=== PATIENT | female | born 1955 | race Caucasian/White ===

== ENCOUNTER 2016-08-19 11:36 | Emergency (ER) | payer MEDICAID ==
[2016-08-19 11:59] VITALS: BP 131/75
[2016-08-19] MEDS ORDERED: Ketorolac 60 MG/2 ML SDV IM ONE (12:48)
--- NOTE | 2016-08-19 13:16 | EDM.PDOC ---
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 She experienced intense patent which scared her, it seems to be calming down but she wanted it checked. No lower extremity symptoms, no incontinence. It's more painful laying down, sitting up seems better. She is able to walk without difficulty. Onset: Sudden Duration: Hour(s): (A few hours ago) Location: Reports: Back Severity: Moderate Associated Symptoms: Reports: No Other Symptoms Treatments [employer]CHITECT: Reports: Acetaminophen Lower Back Pain Score (Numeric/FACES): 3 - Related Data Allergies Allergy/AdvReac Type Severity Reaction Status Date / Time diazepam [From Valium] Allergy Other Verified 08/19/16 12:23 Penicillins Allergy Cannot Verified 08/19/16 12:23 Remember Sulfa (Sulfonamide Allergy Cannot Verified 08/19/16 12:23 Antibiotics) Remember Home Meds: Home Meds Aspirin [Low Dose Aspirin EC] 81 mg PO DAILY 12/12/13 [History] Gabapentin [Gabapentin] 900 mg PO BEDTIME 04/23/16 [History] Past Medical History - Past Health History Medical/Surgical History: Denies Medical/Surgical History HEENT 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: Impaired Vision Musculoskeletal 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: Other (See Below) Other Musculoskeletal History: restless legs Psychiatric 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: Depression - Past Surgical History Female Surgical 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: Hysterectomy Musculoskeletal Surgical 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: Carpal Tunnel, Other (See Below) Other Musculoskeletal Surgeries/Procedures:: tennis elbow surgery Social & Family History - Tobacco Use Smoking Status *Q: Heavy Tobacco Smoker Years of Tobacco use: 45 Packs/Tins Daily: 1 - Alcohol Use Days Per Week of Alcohol Use: 7 Number of Drinks Per Day: 12 Total Drinks Per Week: 84 - Recreational Drug Use Recreational Drug Use: No ED ROS GENERAL - Review of Systems Review Of Systems: See Below Constitutional: Denies: Fever, Chills Respiratory: Denies: Shortness of Breath Cardiovascular: Denies: Chest Pain GI/Abdominal: Denies: Abdominal Pain Skin: Reports: No Symptoms Neurological: Reports: No Symptoms Psychiatric: Reports: No Symptoms ED EXAM,LOWER BACK PAIN/INJURY - Physical Exam Exam: See Below Exam Limited By: No Limitations General Appearance: Alert, No Apparent Distress Respiratory/Chest: No Respiratory Distress Back Exam: Paraspinal Tenderness (Some paraspinal tenderness around the L2-L4 level especially on the right) Neurological: No Motor/Sensory Deficits. No: Straight Leg Raise (L), Straight Leg Raise (R) DTR - Lower Extremities: 1+: Knee (R), Knee (L) Skin Exam: Warm, Dry Course - Vital Signs Last Recorded V/S: Last Vital Signs Temp 95.8 F 08/19/16 12:22 Pulse 72 08/19/16 12:22 Resp 16 08/19/16 12:22 BP 131/75 08/19/16 12:22 Pulse Ox 100 08/19/16 12:22 - Orders/Labs/Meds Meds: Medications Discontinued Medications Generic Name Dose Route Start Last Admin Trade Name [facility] PRN Reason Stop Dose Admin Ketorolac Tromethamine 60 mg 08/19/16 12:48 08/19/16 12:52 Toradol IM 08/19/16 12:49 60 mg ONETIME ONE Administration - Re-Assessments/Exams Free Text/Narrative Re-Assessment/Exam: 08/19/16 13:15 Patient was given 60 mg of Toradol IM which provided some relief. She was given 10 additional doses to take 2-3 times daily and encouraged to increase activity as tolerated. She can recheck next week if not improving satisfactorily, or return sooner if worsening. Departure - Departure Time of Disposition: 13:24 Disposition: Home, Self-Care 01 Condition: Good Clinical Impression: Acute low back pain Qualifiers: Back pain laterality: bilateral Sciatica presence: without sciatica Qualified Code(s): M54.5 - Low back pain - Discharge Information Instructions: Back Pain, Adult, [id number] Referrals: Chris Chamberlain MD [Primary Care Provider] - Forms: ED Department Discharge Care Plan Goals: Take pain medication up to every 8 hours as needed, and recheck next week if not improving satisfactorily. Return sooner if worsening or concerns such as numbness in her leg or inability to walk, incontinence, or leg weakness.
== END 2016-08-19 13:25 | disposition home or self-care (01) ==
LOC: JP.ED 11:36
DX: M54.5 Low back pain (principal); F17.210 Nicotine dependence, cigarettes, uncomplicated; F32.9 Major depressive disorder, single episode, unspecified; Z90.710 Acquired absence of both cervix and uterus; Z98.890 Other specified postprocedural states; Z79.82 Long term (current) use of aspirin; Z88.2 Allergy status to sulfonamides; Z88.0 Allergy status to penicillin; Z88.8 Allergy status to other drugs, medicaments and biological substances
CPT/HCPCS: 96372; 99283; J1885

== ENCOUNTER 2017-11-02 13:48 | Emergency (ER) | payer MEDICAID ==
--- NOTE | 2017-11-02 14:37 | EDM.PDOC ---
ED HPI GENERAL MEDICAL PROBLEM - General Chief Complaint: General Stated Complaint: FELLING FAINT CAME FROM CLINIC Time Seen by Provider: 11/02/17 14:15 Source of Information: Reports: Patient History Limitations: Reports: No Limitations - History of Present Illness INITIAL COMMENTS - FREE TEXT/NARRATIVE: 62-year-old female hasn't been feeling well for the last couple of days with some intermittent tingling of her hands and legs, she feels her blood pressure has been going up and riaz, and she had a headache yesterday. She denies any chest pain or shortness of breath but I think she mentioned some chest pain to the clinic nurse when she called. It sounds like they made an appointment for her tomorrow morning but also advised her to come to the emergency room today. She drinks daily and had some drinks already this morning. Now that she is here in the emergency room she says she "feels fine". Onset: Unknown/Unsure Associated Symptoms: Reports: Headaches, Malaise. Denies: Confusion, Cough denies Pain Score (Numeric/FACES): 0 - Related Data Allergies Allergy/AdvReac Type Severity Reaction Status Date / Time diazepam [From Valium] Allergy Other Verified 11/02/17 13:55 Penicillins Allergy Cannot Verified 11/02/17 13:55 Remember Sulfa (Sulfonamide Allergy Cannot Verified 11/02/17 13:55 Antibiotics) Remember Home Meds: Home Meds Gabapentin 900 mg PO BEDTIME 04/23/16 [History] Past Medical History - Past Health History Medical/Surgical History: Denies Medical/Surgical History HEENT 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: Impaired Vision Cardiovascular 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: Hypertension 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: Musculoskeletal 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: Other (See Below) Other Musculoskeletal History: restless legs Psychiatric 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: Depression - Infectious Disease History Infectious Disease 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: Chicken Pox, Measles, Mumps - Past Surgical History Female Surgical 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: Hysterectomy Musculoskeletal Surgical 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: Carpal Tunnel, Other (See Below) Other Musculoskeletal Surgeries/Procedures:: tennis elbow surgery Social & Family History - Tobacco Use Smoking Status *Q: Current Every Day Smoker Years of Tobacco use: 55 Packs/Tins Daily: 0.2 Used Tobacco, but Quit: No Second Hand Smoke Exposure: Yes - Caffeine Use Caffeine Use: Reports: None - Alcohol Use Days Per Week of Alcohol Use: 7 Number of Drinks Per Day: 6 Total Drinks Per Week: 42 Date of Last Drink: 11/02/17 Time of Last Drink: 11:00 - Recreational Drug Use Recreational Drug Use: No ED ROS GENERAL - Review of Systems Review Of Systems: See Below Constitutional: Reports: Malaise, Decreased Appetite. Denies: Fever, Chills Respiratory: Denies: Shortness of Breath Cardiovascular: Denies: Chest Pain GI/Abdominal: Denies: Nausea, Vomiting : Reports: No Symptoms Musculoskeletal: Reports: Back Pain Neurological: Reports: Dizziness, Other (Feels off balance) ED EXAM, GENERAL - Physical Exam Exam: See Below Exam Limited By: No Limitations General Appearance: Alert, No Apparent Distress Eye Exam: Bilateral Eye: Normal Inspection Head: Atraumatic Neck: Supple, Non-Tender Respiratory/Chest: Lungs Clear Cardiovascular: Regular Rate, Rhythm GI/Abdominal: Other (Does reacts with some tenderness to diffuse palpation of the abdomen but no focal tenderness or guarding) Extremities: Normal Inspection. No: Pedal Edema Neurological: Alert, Oriented, No Motor/Sensory Deficits Psychiatric: Flat Affect Skin Exam: Warm, Dry Course - Vital Signs Last Recorded V/S: Last Vital Signs Temp 96 F 11/02/17 14:10 Pulse 71 11/02/17 15:02 Resp 17 11/02/17 15:02 BP 122/77 11/02/17 15:02 Pulse Ox 99 11/02/17 14:10 Orthostatic Blood Pressure [ 122/78 Standing] Orthostatic Blood Pressure [ 130/78 Sitting] Orthostatic Blood Pressure [ 136/81 Supine] - Orders/Labs/Meds Labs: Laboratory Tests 11/02/17 11/02/17 11/02/17 Range/Units 14:32 14:32 14:32 WBC 6.3 (4.5-11.0) K/uL RBC 3.59 (3.30-5.50) M/uL Hgb 12.3 (12.0-15.0) g/dL Hct 35.6 L (36.0-48.0) % MCV 99 H (80-98) fL MCH 34 H (27-31) pg MCHC 35 (32-36) % Plt Count 299 (150-400) K/uL Neut % (Auto) 54 (36-66) % Lymph % (Auto) 33 (24-44) % Bib[place] % (Auto) 12 H (2-6) % Eos % (Auto) 1 L (2-4) % Baso % (Auto) 1 (0-1) % Sodium 130 L (140-148) mmol/L Potassium 3.6 (3.6-5.2) mmol/L Chloride 96 L (100-108) mmol/L Carbon Dioxide 24 (21-32) mmol/L Anion Gap 13.6 (5.0-14.0) mmol/L BUN 4 L (7-18) mg/dL Creatinine 0.8 (0.6-1.0) mg/dL Est Cr Clr Drug Dosing 58.08 mL/min Estimated GFR (MDRD) > 60 (>60) Glucose 71 L (74-106) mg/dL Calcium 9.0 (8.5-10.1) mg/dL Total Bilirubin 0.6 (0.2-1.0) mg/dL AST 100 H (15-37) U/L ALT 77 (12-78) U/L Alkaline Phosphatase 95 (46-116) U/L Troponin I < 0.017 (0.000-0.056) ng/mL Total Protein 6.6 (6.4-8.2) g/dL Albumin 3.8 (3.4-5.0) g/dL Globulin 2.8 (2.3-3.5) g/dL Albumin/Globulin Ratio 1.4 (1.2-2.2) Ethyl Alcohol 156 mg/dL - Re-Assessments/Exams Free Text/Narrative Re-Assessment/Exam: 11/02/17 14:37 CBC, CMP, EtOH and troponin were obtained. 11/02/17 15:20 CBC is generally normal, CMP shows a mildly low sodium but good renal function and glucose of 71. Troponin is 0. manager monitoring continued to show normal sinus rhythm. Unfortunately her EtOH is 0.156 after not having any alcohol for the last few hours so it was obviously higher already at around 1:00 in the afternoon. She is a daily drinker with chronic alcoholism which is most likely to blame for her peripheral neuropathy. Her AST is also mildly elevated. I offered her detox or help but she refused. Departure - Departure Time of Disposition: 15:35 Disposition: Home, Self-Care 01 Condition: Fair Clinical Impression: Paresthesia of upper and lower extremities of both sides Alcohol intoxication Qualifiers: Complication of substance-induced condition: uncomplicated Qualified Code(s): F10.920 - Alcohol use, unspecified with intoxication, uncomplicated - Discharge Information Instructions: Paresthesia Referrals: Chris Chamberlain MD [Primary Care Provider] - Forms: ED Department Discharge Care Plan Goals: Recheck tomorrow with Dr. Chamberlain as scheduled.
[2017-11-02 15:02] VITALS: BP 122/77
== END 2017-11-02 15:35 | disposition home or self-care (01) ==
LOC: JP.ED 13:48
DX: F10.229 Alcohol dependence with intoxication, unspecified (principal); R20.2 Paresthesia of skin; I10 Essential (primary) hypertension; Z88.0 Allergy status to penicillin; Z88.2 Allergy status to sulfonamides; Y90.6 Blood alcohol level of 120-199 mg/100 ml
CPT/HCPCS: 36415; 80053; 84484; 85025; 99284; G0480

== ENCOUNTER 2018-07-25 21:12 | Emergency (ER) | payer MEDICAID ==
[2018-07-25] MEDS ORDERED: Sodium Chloride 0.9% 1,000 ML IV SCH (21:30)
--- NOTE | 2018-07-25 22:10 | CRLCR ---
INDICATION: chest pain TECHNIQUE: Chest 1 view. COMPARISON: None. FINDINGS: Cardiovascular and mediastinum: Heart size and vasculature are normal in caliber and appearance. Mediastinum is within normal limits. Lungs and pleural space: Lungs are clear. No sign of infiltrate or mass. No sign of pleural effusion. No pneumothorax. Bones and soft tissues: No significant findings. IMPRESSION: Unremarkable chest. Dictated by: Chris Calderon MD @ 07/25/2018 22:09:05 (Electronically Signed)
[2018-07-25] MEDS ORDERED: Potassium Chloride 20 MEQ Tab.ER PO ONE (23:43)
[2018-07-25] MEDS ORDERED: LORazepam 0.5 MG Tab PO ONE (23:44)
[2018-07-26 00:08] VITALS: BP 106/68
--- NOTE | 2018-07-26 00:09 | EDM.PDOC ---
ED HPI GENERAL MEDICAL PROBLEM - General Chief Complaint: Chest Pain Stated Complaint: HEART ISSUES Time Seen by Provider: 07/25/18 21:20 Source of Information: Reports: Patient History Limitations: Reports: No Limitations - History of Present Illness INITIAL COMMENTS - FREE TEXT/NARRATIVE: pt arrived stating that earlier this afternoon she had chest pain. She did continue to have chest tightness on arrival. 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 She states that she does get chest pain when she has to lift and reposition him. Onset: Other ( this afternoon. She also has been drinking 1a 12 pack of beer a day and she has cut back to 3 cans per day. She feels like she is withdrawing some. ) Duration: Hour(s): Location: Reports: Chest Associated Symptoms: Reports: Chest Pain, Cough Chest Pain Score (Numeric/FACES): 7 - Related Data Allergies Allergy/AdvReac Type Severity Reaction Status Date / Time diazepam [From Valium] Allergy Other Verified 07/25/18 21:29 Penicillins Allergy Cannot Verified 07/25/18 21:29 Remember Sulfa (Sulfonamide Allergy Cannot Verified 07/25/18 21:29 Antibiotics) Remember Home Meds: Home Meds Gabapentin 900 mg PO BEDTIME 04/23/16 [History] Omeprazole Magnesium [Prilosec Otc] 1 tab PO DAILY 07/25/18 [History] Past Medical History - Past Health History Medical/Surgical History: Denies Medical/Surgical History HEENT 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: Impaired Vision Cardiovascular 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: Hypertension 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: GERD, Irritable Bowel Syndrome 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: Musculoskeletal 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: Other (See Below) Other Musculoskeletal History: restless legs Psychiatric 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: Depression - Infectious Disease History Infectious Disease 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: Chicken Pox, Measles, Mumps - Past Surgical History Female Surgical 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: Hysterectomy Musculoskeletal Surgical 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: Carpal Tunnel, Other (See Below) Other Musculoskeletal Surgeries/Procedures:: tennis elbow surgery Social & Family History - Tobacco Use Smoking Status *Q: Current Every Day Smoker Years of Tobacco use: 45 Packs/Tins Daily: 1 - Caffeine Use Caffeine Use: Reports: None - Alcohol Use Days Per Week of Alcohol Use: 7 Number of Drinks Per Day: 12 Total Drinks Per Week: 84 Date of Last Drink: 07/25/18 - Recreational Drug Use Recreational Drug Use: No ED ROS GENERAL - Review of Systems Review Of Systems: See Below Constitutional: Reports: No Symptoms HEENT: Reports: No Symptoms Respiratory: Reports: Shortness of Breath, Other (pt gets sob when she is doing the lifting at work) Cardiovascular: Reports: Chest Pain, Other ( sob. ) Endocrine: Reports: No Symptoms GI/Abdominal: Reports: No Symptoms : Reports: No Symptoms Musculoskeletal: Reports: No Symptoms Skin: Reports: No Symptoms ED EXAM, GENERAL - Physical Exam Exam: See Below Free Text/Narrative:: pt arrived with some tightness in her chest. Earlier in the day she had cghest pain. 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 Exam Limited By: No Limitations General Appearance: Alert, Mild Distress, Other (pt just has slight tightness. ) Ears: Normal TMs Nose: Normal Inspection Throat/Mouth: Normal Inspection Head: Atraumatic Neck: Normal Inspection Respiratory/Chest: No Respiratory Distress Cardiovascular: Regular Rate, Rhythm, Other (pt had a unremarkable ekg) (Female) Exam: Deferred Rectal (Female) Exam: Deferred Back Exam: Normal Inspection Extremities: Normal Inspection Neurological: Alert, Oriented, Normal Cognition Course - Vital Signs Last Recorded V/S: Last Vital Signs Temp 35.9 C 07/25/18 21:19 Pulse 78 07/25/18 23:45 Resp 18 07/25/18 23:45 BP 106/68 07/25/18 23:45 Pulse Ox 100 07/25/18 23:45 - Orders/Labs/Meds Orders: Active Orders 24 hr Category Date Time Status EKG Documentation Completion [RC] ASDIRECTED Care 07/25/18 21:19 Active Sodium Chloride 0.9% [Normal Saline] 1,000 ml Med 07/25/18 21:30 Active IV ASDIRECTED EKG 12 Lead [EK] Routine Ther 07/25/18 21:19 Ordered Medication Orders Sodium Chloride (Normal Saline) 1,000 mls @ 500 mls/hr IV ASDIRECTED INDIRA Last Admin: 07/25/18 21:48 Dose: 500 mls/hr Labs: Laboratory Tests 07/25/18 07/25/18 07/25/18 Range/Units 21:19 21:19 21:20 WBC 8.3 (4.5-11.0) K/uL RBC 3.42 (3.30-5.50) M/uL Hgb 11.7 L (12.0-15.0) g/dL Hct 35.6 L (36.0-48.0) % MCV 104 H (80-98) fL MCH 34 H (27-31) pg MCHC 33 (32-36) % Plt Count 237 (150-400) K/uL Neut % (Auto) 69 H (36-66) % Lymph % (Auto) 20 L (24-44) % [place] % (Auto) 10 H (2-6) % Eos % (Auto) 0 L (2-4) % Baso % (Auto) 0 (0-1) % Sodium 131 L (140-148) mmol/L Potassium 3.3 L (3.6-5.2) mmol/L Chloride 96 L (100-108) mmol/L Carbon Dioxide 21 (21-32) mmol/L Anion Gap 17.3 H (5.0-14.0) mmol/L BUN 6 L (7-18) mg/dL Creatinine 0.9 (0.6-1.0) mg/dL Est Cr Clr Drug Dosing 47.33 mL/min Estimated GFR (MDRD) > 60 (>60) Glucose 112 H (74-106) mg/dL Calcium 9.0 (8.5-10.1) mg/dL Total Bilirubin 0.3 (0.2-1.0) mg/dL AST 37 (15-37) U/L ALT 44 (12-78) U/L Alkaline Phosphatase 129 H (46-116) U/L Troponin I < 0.017 (0.000-0.056) ng/mL Total Protein 6.4 (6.4-8.2) g/dL Albumin 3.1 L (3.4-5.0) g/dL Globulin 3.3 (2.3-3.5) g/dL Albumin/Globulin Ratio 0.9 L (1.2-2.2) Urine Color Urine Appearance Urine pH (4.5-8.0) Ur Specific [place] (1.008-1.030) Urine Protein (NEGATIVE) mg/dL Urine Glucose (UA) (NEGATIVE) mg/dL Urine Ketones (NEGATIVE) mg/dL Urine Occult Blood (NEGATIVE) Urine Nitrite (NEGATIVE) Urine Bilirubin (NEGATIVE) Urine Urobilinogen (NORMAL) mg/dL Ur Leukocyte Esterase (NEGATIVE) Urine RBC (0-5) Urine WBC (0-5) Ur Epithelial Cells Amorphous Sediment Urine Bacteria Urine Mucus Urine Opiates Screen (NEGATIVE) Ur Oxycodone Screen (NEGATIVE) Urine Methadone Screen (NEGATIVE) Ur Propoxyphene Screen (NEGATIVE) Ur Barbiturates Screen (NEGATIVE) Ur Tricyclics Screen (NEGATIVE) Ur Phencyclidine Scrn (NEGATIVE) Ur Amphetamine Screen (NEGATIVE) U Methamphetamines Scrn (NEGATIVE) Urine MDMA Screen (NEGATIVE) U Benzodiazepines Scrn (NEGATIVE) U Cocaine Metab Screen (NEGATIVE) U Marijuana (THC) Screen (NEGATIVE) Ethyl Alcohol mg/dL 07/25/18 07/25/18 07/25/18 Range/Units 21:21 21:45 21:50 WBC (4.5-11.0) K/uL RBC (3.30-5.50) M/uL Hgb (12.0-15.0) g/dL Hct (36.0-48.0) % MCV (80-98) fL MCH (27-31) pg MCHC (32-36) % Plt Count (150-400) K/uL Neut % (Auto) (36-66) % Lymph % (Auto) (24-44) % [place] % (Auto) (2-6) % Eos % (Auto) (2-4) % Baso % (Auto) (0-1) % Sodium (140-148) mmol/L Potassium (3.6-5.2) mmol/L Chloride (100-108) mmol/L Carbon Dioxide (21-32) mmol/L Anion Gap (5.0-14.0) mmol/L BUN (7-18) mg/dL Creatinine (0.6-1.0) mg/dL Est Cr Clr Drug Dosing mL/min Estimated GFR (MDRD) (>60) Glucose (74-106) mg/dL Calcium (8.5-10.1) mg/dL Total Bilirubin (0.2-1.0) mg/dL AST (15-37) U/L ALT (12-78) U/L Alkaline Phosphatase (46-116) U/L Troponin I (0.000-0.056) ng/mL Total Protein (6.4-8.2) g/dL Albumin (3.4-5.0) g/dL Globulin (2.3-3.5) g/dL Albumin/Globulin Ratio (1.2-2.2) Urine Color Yellow Urine Appearance Cloudy Urine pH 5.0 (4.5-8.0) Ur Specific [place] 1.005 L (1.008-1.030) Urine Protein Trace (NEGATIVE) mg/dL Urine Glucose (UA) 250 H (NEGATIVE) mg/dL Urine Ketones Negative (NEGATIVE) mg/dL Urine Occult Blood Negative (NEGATIVE) Urine Nitrite Negative (NEGATIVE) Urine Bilirubin Negative (NEGATIVE) Urine Urobilinogen Normal (NORMAL) mg/dL Ur Leukocyte Esterase Negative (NEGATIVE) Urine RBC 0-5 (0-5) Urine WBC 0-5 (0-5) Ur Epithelial Cells Few Amorphous Sediment Few Urine Bacteria Few Urine Mucus Rare Urine Opiates Screen Negative (NEGATIVE) Ur Oxycodone Screen Negative (NEGATIVE) Urine Methadone Screen Negative (NEGATIVE) Ur Propoxyphene Screen Negative (NEGATIVE) Ur Barbiturates Screen Negative (NEGATIVE) Ur Tricyclics Screen Negative (NEGATIVE) Ur Phencyclidine Scrn Negative (NEGATIVE) Ur Amphetamine Screen Negative (NEGATIVE) U Methamphetamines Scrn Negative (NEGATIVE) Urine MDMA Screen Negative (NEGATIVE) U Benzodiazepines Scrn Negative (NEGATIVE) U Cocaine Metab Screen Negative (NEGATIVE) U Marijuana (THC) Screen Negative (NEGATIVE) Ethyl Alcohol 57 mg/dL Meds: Medications Generic Name Dose Route Start Last Admin Trade Name Freq PRN Reason Stop Dose Admin Sodium Chloride 1,000 mls @ 500 mls/hr 07/25/18 21:30 07/25/18 21:48 Normal Saline IV 500 mls/hr ASDIRECTED INDIRA Administration Discontinued Medications Generic Name Dose Route Start Last Admin Trade Name Freq PRN Reason Stop Dose Admin Lorazepam 0.5 mg 07/25/18 23:44 07/26/18 00:11 Ativan PO 07/25/18 23:45 0.5 mg ONETIME ONE Administration Potassium Chloride 20 meq 07/25/18 23:43 07/26/18 00:11 Klor-Con M20 PO 07/25/18 23:44 20 meq ONETIME ONE Administration - Re-Assessments/Exams Free Text/Narrative Re-Assessment/Exam: 07/26/18 00:18 pt had a normal trop nd a normal ekg. She is a little shakey and her k was bordwerline. She was given 20 meq of k and ativan .5. She was ask if she wanted to go to detox and she did not, Departure - Departure Time of Disposition: 00:07 Disposition: Home, Self-Care 01 Condition: Fair Clinical Impression: Chest wall pain, Alcohol withdrawal Referrals: PCP,None [Primary Care Provider] - Forms: ED Department Discharge Care Plan Goals: continuie to taper on the etoh. , rtc for a exercise cardiolyte, rtc if pt has recurrent chest pain. - My Orders Last 24 Hours: My Active Orders 07/25/18 21:19 EKG Documentation Completion [RC] ASDIRECTED EKG 12 Lead [EK] Routine 07/25/18 21:30 Sodium Chloride 0.9% [Normal Saline] 1,000 ml IV ASDIRECTED - Assessment/Plan Last 24 Hours: My Active Orders 07/25/18 21:19 EKG Documentation Completion [RC] ASDIRECTED EKG 12 Lead [EK] Routine 07/25/18 21:30 Sodium Chloride 0.9% [Normal Saline] 1,000 ml IV ASDIRECTED
== END 2018-07-26 00:43 | disposition home or self-care (01) ==
LOC: JP.ED 21:12
DX: R07.89 Other chest pain (principal); F10.230 Alcohol dependence with withdrawal, uncomplicated; F10.220 Alcohol dependence with intoxication, uncomplicated; I10 Essential (primary) hypertension; K21.9 Gastro-esophageal reflux disease without esophagitis; F17.210 Nicotine dependence, cigarettes, uncomplicated; Z88.8 Allergy status to other drugs, medicaments and biological substances; Z88.0 Allergy status to penicillin; Z88.2 Allergy status to sulfonamides; Z79.899 Other long term (current) drug therapy
CPT/HCPCS: 36415; 71045; 80053; 80305; 81001; 84484; 85025; 93005; 96360; 96361; 99285; A9270; G0480; J7030

== ENCOUNTER 2018-11-25 13:57 | Emergency (ER) | payer MEDICAID ==
[2018-11-25 15:09] VITALS: BP 130/70; PULSE 86
--- NOTE | 2018-11-25 15:48 | EDM.PDOC ---
ED HPI GENERAL MEDICAL PROBLEM - General Chief Complaint: Neck Problem Stated Complaint: UNABLE TO MOVE NECK Time Seen by Provider: 11/25/18 15:40 Source of Information: Reports: Patient History Limitations: Reports: No Limitations - History of Present Illness INITIAL COMMENTS - FREE TEXT/NARRATIVE: Anabella is a 63 year old female who presents to the ED today with c/o progressive bilateral shoulder and neck pain. Patient denies any injury/trauma. Patient reports she has been taking ibuprofen for her symptoms without any relief. Patient denies any numbness/tingling, no hx of this in the past, no unusual activity. Patient drove herself here. Pain worse with rotation, right greater than left. Onset: Gradual Duration: Day(s): (2) Neck Pain Score (Numeric/FACES): 10 - Related Data Allergies Allergy/AdvReac Type Severity Reaction Status Date / Time diazepam [From Valium] Allergy Other Verified 11/25/18 15:09 Penicillins Allergy Cannot Verified 11/25/18 15:09 Remember Sulfa (Sulfonamide Allergy Cannot Verified 11/25/18 15:09 Antibiotics) Remember Home Meds: Home Meds Gabapentin 900 mg PO BEDTIME 04/23/16 [History] Omeprazole Magnesium [Prilosec Otc] 1 tab PO DAILY 07/25/18 [History] Metoprolol Succinate 12.5 mg PO DAILY 11/25/18 [History] amLODIPine [Norvasc] 1 tab PO DAILY 11/25/18 [History] atorvaSTATin Calcium [Atorvastatin Calcium] 1 tab PO BEDTIME 11/25/18 [History] Past Medical History - Past Health History Medical/Surgical History: Denies Medical/Surgical History HEENT 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: Impaired Vision Cardiovascular 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: Hypertension 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: GERD, Irritable Bowel Syndrome 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 SHEARER 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: Musculoskeletal 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: Other (See Below) Other Musculoskeletal History: restless legs Psychiatric 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: Depression - Infectious Disease History Infectious Disease 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: Chicken Pox, Measles, Mumps - Past Surgical History Female Surgical 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: Hysterectomy Musculoskeletal Surgical 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: Carpal Tunnel, Other (See Below) Other Musculoskeletal Surgeries/Procedures:: tennis elbow surgery Social & Family History - Tobacco Use Smoking Status *Q: Heavy Tobacco Smoker Years of Tobacco use: 48 Packs/Tins Daily: 1 - Caffeine Use Caffeine Use: Reports: None - Alcohol Use Days Per Week of Alcohol Use: 7 Number of Drinks Per Day: 8 Total Drinks Per Week: 56 - Recreational Drug Use Recreational Drug Use: No ED ROS GENERAL - Review of Systems Review Of Systems: ROS reveals no pertinent complaints other than HPI. ED EXAM, UPPER BACK/NECK PAIN - Physical Exam Exam: See Below Exam Limited By: No Limitations General Appearance: Alert, WD/WN, No Apparent Distress Eye Exam: Bilateral Eye: EOMI Nose Exam: Normal Inspection Throat/Mouth Exam: Normal Inspection, Normal Oropharynx Head Exam: Atraumatic, Normocephalic Neck Exam: Limited Range of Motion, Muscle Spasm, Tender Lateral, Other (no nuchal rigidity, muscular tenderness bilaterally). 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 Patient's exam consistent with acute torticollis, current spasm. no signs of nuchal rigidity or meningismus. No other concerning findings on exam. Discussed wry neck with patient, will put her on a 5 day course of prednisone, Flexeril for muscle spams and [place] for pain, narcotic safety and side effects discussed, continue with ibuprofen, alternate ice/heat. Follow up with PCP next week if no improvement. Reasons to return to the ED discussed, patient agreeable and discharged in stable condition. Departure - Departure Time of Disposition: 16:30 Disposition: Home, Self-Care 01 Condition: Good Clinical Impression: Torticollis - Discharge Information Instructions: Acute Torticollis, Adult Referrals: Chris Chamberlain MD [Primary Care Provider] - Additional Instructions: Start prednisone today, take as directed. Ibuprofen 600 mg every 6 hours for pain. Flexeril is a muscle relaxer it is not a narcotic but may make you sleepy. [place] is a narcotic and does contain Tylenol, do not drive if you take this. If you are not feeling better by tuesday follow up with PCP.
== END 2018-11-25 16:02 | disposition home or self-care (01) ==
LOC: JP.ED 13:57
DX: M43.6 Torticollis (principal); I10 Essential (primary) hypertension; K21.9 Gastro-esophageal reflux disease without esophagitis; F32.9 Major depressive disorder, single episode, unspecified; F17.210 Nicotine dependence, cigarettes, uncomplicated; Z88.0 Allergy status to penicillin; Z88.2 Allergy status to sulfonamides; Z88.8 Allergy status to other drugs, medicaments and biological substances; Z79.899 Other long term (current) drug therapy
CPT/HCPCS: 99283

== ENCOUNTER 2019-08-10 09:08 | Day surgery (SDC) | payer MEDICAID ==
[~2019-08-10 09:08] MED LIST: Midazolam 1 MG/ML 2 ML SDV ONE; Propofol 200 MG/20 ML SDV ONE; fentaNYL 100 MCG/2 ML SDV ONE
[2019-08-10] MEDS ORDERED: Sodium Chloride 0.9% 1,000 ML IV SCH (09:45)
[2019-08-10 11:33] VITALS: BP 127/78; PULSE 82
--- NOTE | 2019-08-10 11:45 | OR ---
DATE OF PROCEDURE: 08/10/2019 SURGEON: Dc Beauchamp MD PROCEDURE: Esophagogastroduodenoscopy. FINDINGS: Inflammation at gastroesophageal junction concerning for reflux disease (biopsied in all 4 quadrants). COMPLICATIONS: None. RADIO COMMUNICATION COORDINATOR: None. ANESTHESIA: MAC. PREOPERATIVE DIAGNOSIS: Dysphagia. POSTOPERATIVE DIAGNOSIS: Dysphagia. RISKS: Risks, benefits, alternatives, and limitations including, but not limited to infection, bleeding, and perforation were explained to the patient, who wished to proceed. PROCEDURE IN DETAIL: The patient was placed in left lateral decubitus position. The EGD scope was introduced and advanced atraumatically to the second part of the duodenum. Photo was taken of this. Scope was brought back and retroflexed. No hiatal hernia. No gastritis or ulceration. Within the esophagus, the patient had multiple tongues of inflammation concerning for gastroesophageal reflux disease, biopsied in all 4 quadrants. The remainder of esophagus was normal. The patient tolerated the procedure well. Dc Beauchamp MD /[id number]
== END 2019-08-10 11:36 | disposition home or self-care (01) ==
LOC: JP.SDS 09:08
PROVIDERS: ATTEND Surgery
DX: K21.0 Gastro-esophageal reflux disease with esophagitis (principal); K31.89 Other diseases of stomach and duodenum; D72.820 Lymphocytosis (symptomatic); Z88.0 Allergy status to penicillin; Z88.2 Allergy status to sulfonamides; Z88.8 Allergy status to other drugs, medicaments and biological substances
CPT/HCPCS: 43239; J2704; J3010; J7030; 88305; J2250

== ENCOUNTER 2021-02-13 15:32 | Emergency (ER) | payer MEDICAID ==
[2021-02-13 15:52] VITALS: BP 98/71; PULSE 78
--- NOTE | 2021-02-13 15:56 | EDM.PDOC ---
ED HPI GENERAL MEDICAL PROBLEM - General Chief Complaint: General Stated Complaint: CHEST PAIN Time Seen by Provider: 02/13/21 16:25 Source of Information: Reports: Patient, Old Records, RN History Limitations: Reports: No Limitations - History of Present Illness INITIAL COMMENTS - FREE TEXT/NARRATIVE: 65 yo female presents with anterior chest wall pain. Says she fell a few days ago when she had a "slight seizure". Has no record in her chart of epilepsy. Says she has some pain with breathing, but no SOB. Is taking low dose ibuprofen 400 mg bid with slight benefit. Has not seen her provider for this. Onset: Sudden Onset Date: 02/10/21 Duration: Day(s):, Constant Location: Reports: Chest Quality: Reports: Sharp Severity: Moderate Improves with: Reports: Other (shallow breathing) Worsens with: Reports: Breathing (deep breathing) Context: Reports: Other (See HPI) Associated Symptoms: Reports: Chest Pain. Denies: Cough, Fever/Chills, Shortness of Breath Treatments DIRECTIONAL SURVEY DRAFTER: Reports: Other (see below) (ibuprofen 400 mg this AM) Chest Pain Score (Numeric/FACES): 3 - Related Data Allergies Allergy/AdvReac Type Severity Reaction Status Date / Time diazepam [From Valium] Allergy Other Verified 02/13/21 16:17 Penicillins Allergy Cannot Verified 02/13/21 16:17 Remember Sulfa (Sulfonamide Allergy Cannot Verified 02/13/21 16:17 Antibiotics) Remember Home Meds: Home Meds Gabapentin 600 mg PO BID 04/23/16 [History] Omeprazole Magnesium [Prilosec Otc] 10 mg PO DAILY 07/25/18 [History] amLODIPine [Norvasc] 1 tab PO DAILY 11/25/18 [History] atorvaSTATin Calcium [Atorvastatin Calcium] 20 mg PO BEDTIME 11/25/18 [History] Aspirin [Halfprin] 81 mg PO DAILY 06/01/19 [History] Clopidogrel Bisulfate [Clopidogrel] 75 mg PO DAILY 06/01/19 [History] Lactobacillus Acidophilus [Acidophilus] 1 each PO DAILY 06/01/19 [History] Furosemide 20 mg PO DAILY 02/13/21 [History] Past Medical History - Past Health History Medical/Surgical History: Denies Medical/Surgical History HEENT 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: Allergic Rhinitis, Impaired Vision Cardiovascular 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: High Cholesterol, Hypertension 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: GERD, Irritable Bowel Syndrome Genitourinary 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: UTI, Recurrent ONCOLOGY ACCOUNT SPECIALIST 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: , Other (See Below) Other ONCOLOGY ACCOUNT SPECIALIST History: "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" per patient Musculoskeletal 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: Other (See Below) Other Musculoskeletal History: restless legs Neurological 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: Headaches, Chronic Psychiatric 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: Depression Hematologic 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: Anticoagulation Therapy Dermatologic 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: Other (See Below) Other Dermatologic History: bruising from blood thinner - Infectious Disease History Infectious Disease 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: Chicken Pox - Past Surgical History HEENT Surgical 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: None Cardiovascular Surgical 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: Coronary Artery Stent GI Surgical 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: None Female Surgical 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: Hysterectomy Neurological Surgical 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: None Musculoskeletal Surgical 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: Carpal Tunnel, Other (See Below) Other Musculoskeletal Surgeries/Procedures:: tennis elbow surgery Dermatological Surgical 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: None Social & Family History - Caffeine Use Caffeine Use: Reports: None ED ROS GENERAL - Review of Systems Review Of Systems: See Below Constitutional: Reports: No Symptoms HEENT: Reports: No Symptoms Respiratory: Reports: Pleuritic Chest Pain. Denies: Shortness of Breath, Wheezing, Cough, Sputum, Hemoptysis Cardiovascular: Reports: Chest Pain (chest wall) GI/Abdominal: Reports: No Symptoms Musculoskeletal: Reports: No Symptoms Skin: Reports: No Symptoms Neurological: Reports: No Symptoms ED EXAM, GENERAL - Physical Exam Exam: See Below Exam Limited By: No Limitations General Appearance: Alert, WD/WN, No Apparent Distress, Thin Eye Exam: Bilateral Eye: Normal Inspection Ears: Normal External Exam, Normal Canal, Hearing Grossly Normal Ear Exam: Bilateral Ear: Auricle Normal, Canal Normal Nose: Normal Inspection, No Blood Throat/Mouth: Normal Inspection, Normal Lips, Normal Oropharynx, Normal Voice, No Airway Compromise Head: Atraumatic, Normocephalic Neck: Normal Inspection Respiratory/Chest: No Respiratory Distress, Lungs Clear, Normal Breath Sounds, No Accessory Muscle Use. No: Chest Non-Tender (mild anterior chest wall tenderness) Cardiovascular: Regular Rate, Rhythm, No Edema GI/Abdominal: Soft, Non-Tender Back Exam: Normal Inspection. No: CVA Tenderness (R), CVA Tenderness (L) Extremities: Normal Inspection, Normal Range of Motion, Non-Tender, No Pedal Edema Neurological: Alert, Oriented, CN II-XII Intact, Normal Cognition, No Motor/Sensory Deficits Psychiatric: Normal Affect, Normal Mood Skin Exam: Warm, Dry, Intact, Normal Color, No Rash Course - Vital Signs Last Recorded V/S: Last Vital Signs Temp 36.1 C 02/13/21 16:15 Pulse 78 02/13/21 16:15 Resp 16 02/13/21 16:15 BP 98/71 02/13/21 16:15 Pulse Ox 100 02/13/21 16:15 - Orders/Labs/Meds Orders: Active Orders 24 hr Category Date Time Status Chest 2V [CR] Stat Exams 02/13/21 15:54 Ordered - Radiology Interpretation Free Text/Narrative:: CXR-nothing acute Departure - Departure Time of Disposition: 16:55 Disposition: Home, Self-Care 01 Condition: Fair Clinical Impression: Chest wall pain - Discharge Information *PRESCRIPTION DRUG MONITORING PROGRAM REVIEWED*: Not Applicable *COPY OF PRESCRIPTION DRUG MONITORING REPORT IN PATIENT CARMEN: Not Applicable Instructions: Chest Wall Pain, [id number] Referrals: Chris Chamberlain MD [Primary Care Provider] - Forms: ED Department Discharge Additional Instructions: Acetaminophen 650 mg every 6 hrs and if needed ibuprofen 400 mg every 6 hrs for pain relief. Recheck with your provider if not improving by 1 week. Sepsis Event Note (ED) - Focused Exam Vital Signs: Vital Signs Temp Pulse Resp BP Pulse Ox 02/13/21 16:15 36.1 C 78 16 98/71 100 02/13/21 15:50 36.1 C 78 16 98/71 100 - My Orders Last 24 Hours: My Active Orders 02/13/21 15:54 Chest 2V [CR] Stat - Assessment/Plan Last 24 Hours: My Active Orders 02/13/21 15:54 Chest 2V [CR] Stat
[2021-02-13] MEDS ORDERED: Acetaminophen 325 MG Tab PO ONE (16:42)
--- NOTE | 2021-02-16 09:30 | CR ---
CHEST: 2 view CLINICAL HISTORY:Fall COMPARISON:2019 FINDINGS: There is a step-off of the lower third of the manubrium consistent with previous fracture. Chronology is uncertain. Lungs are emphysematous. The heart size, pulmonary vascularity and hilar structures are normal. No infiltrate effusion or pneumothorax is seen. IMPRESSION: Fracture of the manubrium just above the angle of Erasto. Chronology is uncertain. Patient did have trauma and anterior chest pain. If clinically relevant the dedicated sternal study or CT should be considered. No acute cardiopulmonary process. Emphysema
== END 2021-02-13 17:00 | disposition home or self-care (01) ==
LOC: JP.ED 15:32
DX: R07.89 Other chest pain (principal); K21.9 Gastro-esophageal reflux disease without esophagitis; E78.00 Pure hypercholesterolemia, unspecified; I10 Essential (primary) hypertension; Z88.0 Allergy status to penicillin; Z88.2 Allergy status to sulfonamides; Z88.5 Allergy status to narcotic agent; Z79.82 Long term (current) use of aspirin; Z79.899 Other long term (current) drug therapy
CPT/HCPCS: 71046; 99284; A9270

== ENCOUNTER 2021-03-08 19:22 | Emergency (ER) | payer MEDICAID ==
--- NOTE | 2021-03-08 20:30 | EDM.PDOC ---
ED HPI GENERAL MEDICAL PROBLEM - General Chief Complaint: General Stated Complaint: SWOLLEN & PAINFUL LEGS Time Seen by Provider: 03/08/21 19:41 Source of Information: Reports: Patient History Limitations: Reports: No Limitations - History of Present Illness INITIAL COMMENTS - FREE TEXT/NARRATIVE: 65-year-old female presents to the emergency department with bilateral lower extremity swelling with pain from knees to feet. Pain is longstanding. Swelling started in the right lower extremity 1 month ago. Swelling in the left lower extremity started 2 weeks ago. Onset was gradual. Pain is described as a burning prickly sensitive kind of pain. She is intolerant of the sheets on her legs and feet. She is on gabapentin. She has recently increased the dose at nighttime to get relief at sleep. This has been effective. Patient has been difficulty walking. Saw her physician in the clinic and she was prescribed furosemide. Is intolerant to this and reported leg shaking, weakness, and falls. She wondered about seizure but she did not lose consciousness and she did not have any postictal period. Patient states that she has heart disease. She drinks alcohol in excess of limits. She generally has approximately 5 beers per day. She states that she eats 2 meals per day. She denies any liver disease or kidney disease. Denies any anemia. Denies any thyroid disease or vitamin deficiency. She is not on any multivitamins or supplements. Bilateral Lower Leg Pain Score (Numeric/FACES): 6 - Related Data Allergies Allergy/AdvReac Type Severity Reaction Status Date / Time diazepam [From Valium] Allergy Other Verified 03/08/21 19:49 Penicillins Allergy Cannot Verified 03/08/21 19:49 Remember Sulfa (Sulfonamide Allergy Cannot Verified 03/08/21 19:49 Antibiotics) Remember Home Meds: Home Meds Gabapentin 600 mg PO BID 04/23/16 [History] Omeprazole Magnesium [Prilosec Otc] 10 mg PO DAILY 07/25/18 [History] amLODIPine [Norvasc] 1 tab PO DAILY 11/25/18 [History] atorvaSTATin Calcium [Atorvastatin Calcium] 20 mg PO BEDTIME 11/25/18 [History] Aspirin [Halfprin] 81 mg PO DAILY 06/01/19 [History] Clopidogrel Bisulfate [Clopidogrel] 75 mg PO DAILY 06/01/19 [History] Furosemide 20 mg PO DAILY 02/13/21 [History] Folic Acid 1 mg PO DAILY #30 tab 03/08/21 [Rx] Potassium Chloride 20 meq PO DAILY #30 tablet.er 03/08/21 [Rx] Past Medical History - Past Health History Medical/Surgical History: Denies Medical/Surgical History HEENT 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: Allergic Rhinitis, Impaired Vision Cardiovascular 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: High Cholesterol, Hypertension 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: GERD, Irritable Bowel Syndrome Genitourinary 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: UTI, Recurrent 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: , Other (See Below) 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: "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" per patient Musculoskeletal 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: Other (See Below) Other Musculoskeletal History: restless legs Neurological 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: Headaches, Chronic Psychiatric 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: Depression Hematologic 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: Anticoagulation Therapy Dermatologic 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: Other (See Below) Other Dermatologic History: bruising from blood thinner - Infectious Disease History Infectious Disease 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: Chicken Pox - Past Surgical History HEENT Surgical 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: None Cardiovascular Surgical 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: Coronary Artery Stent GI Surgical 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: None Female Surgical 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: Hysterectomy Neurological Surgical 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: None Musculoskeletal Surgical 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: Carpal Tunnel, Other (See Below) Other Musculoskeletal Surgeries/Procedures:: tennis elbow surgery Dermatological Surgical 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: None Social & Family History - Tobacco Use Tobacco Use Status *Q: Current Every Day Tobacco User Years of Tobacco use: 45 Packs/Tins Daily: 0.5 - Caffeine Use Caffeine Use: Reports: None - Alcohol Use Number of Drinks Per Day: 6 - Recreational Drug Use Recreational Drug Use: No ED ROS GENERAL - Review of Systems Review Of Systems: See Below Constitutional: Denies: Fever, Chills Respiratory: Denies: Shortness of Breath Cardiovascular: Denies: Chest Pain Endocrine: Reports: No Symptoms GI/Abdominal: Reports: No Symptoms : Reports: No Symptoms Musculoskeletal: Reports: Back Pain (This is chronic), Leg Pain, Other (Soft tissue swelling and stiffness) Skin: Reports: Other (Shiny and edematous skin. Reform skin around the ankles.) Neurological: Reports: Paresthesia, Tingling, Difficulty Walking, Weakness Psychiatric: Reports: No Symptoms. Denies: Confusion Hematologic/Lymphatic: Reports: No Symptoms. Denies: Anemia ED EXAM, GENERAL - Physical Exam Exam: See Below Free Text/Narrative:: General: Patient is alert. She is in no acute distress. HEENT: Head is normocephalic and atraumatic. Pupils are equal, round, and reactive to light and accommodation. Extraocular movements are intact. Sclerae are anicteric. Nares are patent without rhinorrhea. Oral mucosa is moist without lesions or exudates. Hearing is intact. Neck: Trachea midline. No thyromegaly. No masses. No lymphadenopathy. Tenderness along left sternocleidomastoid muscle. No carotid bruits. Lungs: Clear to auscultation bilaterally. No respiratory distress. Cardiovascular: Regular rate and rhythm. No murmurs. Abdomen: No ascites. She has a piercing of her umbilicus. I cannot appreciate any hepatosplenomegaly. No tenderness. Extremities: Bilateral lower extremity edema from knees down to her toes. Legs are very tender to palpation and she has allodynia. Skin is shiny and she has pink color around the ankles. No significant warmth. No joint effusions. Range of motion is intact. No palpable cords but exam limited due to poor tolerance of palpation of her calves. Homans' sign negative. Neurologic: No asterixis. No confusion. Cranial nerves grossly intact. Strength 5 out of 5 in all limbs. Sensation intact. Exam Limited By: No Limitations #1 Interpretation EKG Date: 03/08/21 Rhythm: NSR [place]: Normal P-Wave: Present QRS: Normal ST-T: Depressed (anterior leads) QT: Normal Course - Vital Signs Last Recorded V/S: Last Vital Signs Temp 97.5 F 03/08/21 19:46 Pulse 91 03/09/21 02:10 Resp 16 03/09/21 02:10 BP 83/59 L 03/09/21 02:10 Pulse Ox 97 03/09/21 02:10 - Orders/Labs/Meds Orders: Active Orders 24 hr Category Date Time Status Peripheral IV Care [RC] . DIRECTED Care 03/08/21 21:07 Active URINALYSIS W/O MICROSCOPIC [UA W/O MICROSCOPIC] [URIN] Lab 03/08/21 20:23 Ordered Stat Lidocaine 1% [Xylocaine-MPF 1%] Med 03/08/21 22:12 Active 5 ml INJECT Q2H PRN Sodium Chloride 0.9% [Saline Flush] Med 03/08/21 21:06 Active 10 ml FLUSH ASDIRECTED PRN Peripheral IV Insertion Adult [OM.PC] Routine Oth 03/08/21 21:06 Ordered EKG 12 Lead [EK] Routine Ther 03/08/21 21:06 Ordered Medication Orders Lidocaine HCl (Lidocaine 1% 5 Ml Sdv) 5 ml INJECT Q2H PRN PRN Reason: add to potassium Last Admin: 03/08/21 23:39 Dose: 5 ml Documented by: JOEY Sodium Chloride (Sodium Chloride 0.9% 10 Ml Syringe) 10 ml FLUSH ASDIRECTED PRN PRN Reason: Keep Vein Open Last Admin: 03/08/21 22:36 Dose: 10 ml Documented by: JOEY Labs: Laboratory Tests 03/08/21 03/08/21 03/08/21 Range/Units 20:22 20:34 20:34 WBC 7.6 (3.2-11.0) K/uL RBC 3.83 (3.77-5.24) M/uL Hgb 12.0 (11.2-15.5) Hct 36.0 (34.3-46.0) % MCV 94.0 (81.4-99.0) fL MCH 31.3 L (31.6-35.5) pg MCHC 33.3 (31.6-35.5) g/dL Plt Count 268 (130-375) K/uL Add Manual Diff Yes Neutrophils % (Manual) 45 (36-66) % Lymphocytes % (Manual) 46 H (24-44) % Monocytes % (Manual) 9 H (2-6) % Atypical Lymphocytes Moderate Sodium 139 L (140-148) mmol/L Potassium 2.9 L* (3.6-5.2) mmol/L Chloride 102 (100-108) mmol/L Carbon Dioxide 28 (21-32) mmol/L Anion Gap 11.9 (5.0-14.0) mmol/L BUN 4 L (7-18) mg/dL Creatinine 0.7 (0.6-1.0) mg/dL Est Cr Clr Drug Dosing 56.36 mL/min Estimated GFR (MDRD) > 60 (>60) Glucose 116 H (74-106) mg/dL Calcium 8.1 L (8.5-10.1) mg/dL Total Bilirubin 0.6 D (0.2-1.0) mg/dL AST 26 (15-37) U/L ALT 17 (12-78) U/L Alkaline Phosphatase 186 H (46-116) U/L Total Protein 5.6 L (6.4-8.2) g/dL Albumin 2.0 L (3.4-5.0) g/dL Globulin 3.6 H (2.3-3.5) g/dL Albumin/Globulin Ratio 0.6 L (1.2-2.2) Vitamin B12 (193-986) pg/ml Folate 4.0 L (8.6-58.9) ng/ml TSH, Ultra Sensitive 1.537 (0.358-3.740) uIU/mL 03/08/21 03/09/21 Range/Units 20:34 02:52 WBC (3.2-11.0) K/uL RBC (3.77-5.24) M/uL Hgb (11.2-15.5) Hct (34.3-46.0) % MCV (81.4-99.0) fL MCH (31.6-35.5) pg MCHC (31.6-35.5) g/dL Plt Count (130-375) K/uL Add Manual Diff Neutrophils % (Manual) (36-66) % Lymphocytes % (Manual) (24-44) % Monocytes % (Manual) (2-6) % Atypical Lymphocytes Sodium (140-148) mmol/L Potassium 3.7 (3.6-5.2) mmol/L Chloride (100-108) mmol/L Carbon Dioxide (21-32) mmol/L Anion Gap (5.0-14.0) mmol/L BUN (7-18) mg/dL Creatinine (0.6-1.0) mg/dL Est Cr Clr Drug Dosing mL/min Estimated GFR (MDRD) (>60) Glucose (74-106) mg/dL Calcium (8.5-10.1) mg/dL Total Bilirubin (0.2-1.0) mg/dL AST (15-37) U/L ALT (12-78) U/L Alkaline Phosphatase (46-116) U/L Total Protein (6.4-8.2) g/dL Albumin (3.4-5.0) g/dL Globulin (2.3-3.5) g/dL Albumin/Globulin Ratio (1.2-2.2) Vitamin B12 1043 H (193-986) pg/ml Folate (8.6-58.9) ng/ml TSH, Ultra Sensitive (0.358-3.740) uIU/mL Meds: Medications Generic Name Dose Route Start Last Admin Trade Name [facility] PRN Reason Stop Dose Admin Lidocaine HCl 5 ml 03/08/21 22:12 03/08/21 23:39 Lidocaine 1% 5 Ml Sdv INJECT 5 ml Q2H PRN Administration add to potassium Sodium Chloride 10 ml 03/08/21 21:06 03/08/21 22:36 Sodium Chloride 0.9% 10 Ml Syringe FLUSH 10 ml ASDIRECTED PRN Administration Keep Vein Open Discontinued Medications Generic Name Dose Route Start Last Admin Trade Name [facility] PRN Reason Stop Dose Admin Folic Acid 1 mg 03/08/21 21:40 03/08/21 23:08 Folic Acid 1 Mg Tab PO 03/08/21 21:41 1 mg ONETIME ONE Administration Magnesium Sulfate 2 gm/ Premix 50 mls @ 25 mls/hr 03/08/21 21:08 03/08/21 22:43 IV 03/08/21 23:07 25 mls/hr ONETIME ONE Administration Potassium Chloride 20 meq/ 100 mls @ 50 mls/hr 03/08/21 21:56 03/08/21 22:36 Premix IV 03/08/21 23:55 Not Given ONETIME ONE Potassium Chloride 20 meq/ 100 mls @ 50 mls/hr 03/08/21 22:11 03/09/21 00:47 Premix IV 03/08/21 23:55 50 mls/hr ONETIME ONE Administration Potassium Chloride Confirm 03/09/21 00:37 03/09/21 00:47 Kcl In Water 20 Meq/100 Ml Administered 03/09/21 00:38 Not Given Dose 100 mls @ as directed .ROUTE .STK-MED ONE Potassium Chloride 20 meq 03/08/21 21:06 03/08/21 22:35 Potassium Chloride 20 Meq Tab.Er PO 03/08/21 21:07 20 meq ONETIME ONE Administration - Re-Assessments/Exams Free Text/Narrative Re-Assessment/Exam: 03/08/21 21:49 Discussed lab results with patient. Notable findings include hypokalemia and low folic acid. Patient will receive potassium chloride orally and with IVPB in the ED. She will receive 2 g of magnesium sulfate. She will also received 1 mg of oral folic acid. 03/09/21 03:29 Repeat potassium was normal after IV replacement and oral replacement. Departure - Departure Time of Disposition: 03:30 Disposition: Home, Self-Care 01 Clinical Impression: Hypokalemia, Folate deficiency, Edema due to hypoalbuminemia, Neuropathic pain - Discharge Information *PRESCRIPTION DRUG MONITORING PROGRAM REVIEWED*: Not Applicable *COPY OF PRESCRIPTION DRUG MONITORING REPORT IN PATIENT CARMEN: Not Applicable Prescriptions: Folic Acid 1 mg PO DAILY #30 tab Potassium Chloride 20 meq PO DAILY #30 tablet.er Instructions: Hypokalemia, Peripheral Neuropathy, Peripheral Edema Referrals: Chris Chamberlain MD [Primary Care Provider] - Forms: ED Department Discharge Additional Instructions: Activity as tolerated. Eat a healthy and balanced diet. Supplement meals with protein shakes. Take potassium chloride as directed. Be sure to get lab check within 1 to 2 weeks. Take folic acid as directed. Replacement of folic acid and correction of folic acid deficiency may improve your nerve pain. Continue your gabapentin as directed. Reduce alcohol intake. Improved nutrition and improved liver health should improve your lower extremity swelling. Sepsis Event Note (ED) - Evaluation Sepsis Screening Result: No Definite Risk - Focused Exam Vital Signs: Vital Signs Temp Pulse Resp BP Pulse Ox 03/09/21 02:10 91 16 83/59 L 97 03/09/21 00:43 86 16 87/57 L 99 03/08/21 23:49 89 16 91/63 99 03/08/21 22:42 96 16 107/75 97 03/08/21 19:46 97.5 F 95 16 128/82 100 03/08/21 19:43 97.5 F 95 16 128/82 100 - Problem List & Annotations (1) Edema due to hypoalbuminemia SNOMED Code(s): 647645849, 101003539 Code(s): E88.09 - OTH DISORDERS OF PLASMA-PROTEIN METABOLISM, NEC Status: Acute Current Visit: Yes (2) Folate deficiency SNOMED Code(s): 553956806 Code(s): E53.8 - DEFICIENCY OF OTHER SPECIFIED B GROUP VITAMINS Status: Acute Current Visit: Yes (3) Hypokalemia SNOMED Code(s): 98027406 Code(s): E87.6 - HYPOKALEMIA Status: Acute Current Visit: Yes (4) Neuropathic pain SNOMED Code(s): 877277781 Code(s): M79.2 - NEURALGIA AND NEURITIS, UNSPECIFIED Status: Chronic Current Visit: Yes - Problem List Review Problem List Initiated/Reviewed/Updated: Yes - My Orders Last 24 Hours: My Active Orders 03/08/21 20:23 URINALYSIS W/O MICROSCOPIC [UA W/O MICROSCOPIC] [URIN] Stat 03/08/21 21:06 Sodium Chloride 0.9% [Saline Flush] 10 ml FLUSH ASDIRECTED PRN Peripheral IV Insertion Adult [OM.PC] Routine EKG 12 Lead [EK] Routine 03/08/21 21:07 Peripheral IV Care [RC] . DIRECTED 03/08/21 22:12 Lidocaine 1% [Xylocaine-MPF 1%] 5 ml INJECT Q2H PRN - Assessment/Plan Last 24 Hours: My Active Orders 03/08/21 20:23 URINALYSIS W/O MICROSCOPIC [UA W/O MICROSCOPIC] [URIN] Stat 03/08/21 21:06 Sodium Chloride 0.9% [Saline Flush] 10 ml FLUSH ASDIRECTED PRN Peripheral IV Insertion Adult [OM.PC] Routine EKG 12 Lead [EK] Routine 03/08/21 21:07 Peripheral IV Care [RC] . DIRECTED 03/08/21 22:12 Lidocaine 1% [Xylocaine-MPF 1%] 5 ml INJECT Q2H PRN Plan: Potassium chloride 20 mEq p.o. daily. Follow-up in the clinic. Repeat labs within 1 to 2 weeks. Supplement meals with protein shakes. Take folic acid as directed. Continue gabapentin for neuropathy. Reduce alcohol intake.
[2021-03-08] MEDS ORDERED: Sodium Chloride 0.9% 10 ML Syringe FLUSH PRN (21:06)
[2021-03-08] MEDS ORDERED: Potassium Chloride 20 MEQ Tab.ER PO ONE (21:06)
[2021-03-08] MEDS ORDERED: Magnesium Sulfate/Water 2 GM in Premix Bag 1 BAG IV ONE (21:08)
[2021-03-08] MEDS ORDERED: Sodium Chloride 0.9% with KCl 1,000 ML IV SCH (21:15)
[2021-03-08] MEDS ORDERED: Folic Acid 1 MG Tab PO ONE (21:40)
[2021-03-08] MEDS ORDERED: Potassium Chloride 20 MEQ in Premix Bag 1 BAG IV ONE (21:56)
[2021-03-08] MEDS: Potassium Chloride 20 MEQ in Premix Bag 2 BAG IV ONE (22:37)
[2021-03-09] MEDS ORDERED: Potassium Chloride 100 ML ONE (00:37)
[2021-03-09] MEDS: Potassium Chloride 20 MEQ in Premix Bag 2 BAG IV ONE (00:47)
[2021-03-09 03:40] VITALS: BP 102/65; PULSE 90
== END 2021-03-09 03:57 | disposition home or self-care (01) ==
LOC: JP.ED 19:22
DX: G62.9 Polyneuropathy, unspecified (principal); E88.09 Other disorders of plasma-protein metabolism, not elsewhere classified; R60.0 Localized edema; D52.9 Folate deficiency anemia, unspecified; E78.00 Pure hypercholesterolemia, unspecified; I10 Essential (primary) hypertension; K21.9 Gastro-esophageal reflux disease without esophagitis; Z79.01 Long term (current) use of anticoagulants; Z72.0 Tobacco use; Z88.8 Allergy status to other drugs, medicaments and biological substances; Z88.0 Allergy status to penicillin; Z88.2 Allergy status to sulfonamides; Z79.82 Long term (current) use of aspirin; Z79.899 Other long term (current) drug therapy
CPT/HCPCS: 36415; 80053; 82607; 82746; 84132; 84443; 85025; 93005; 96365; 96366; 96368; 99283; A9270; J3475; J3480

== ENCOUNTER 2022-04-22 14:33 | Inpatient (IN) | payer MEDICAID ==
[2022-04-22 16:48] LABS: ESTIMATED GFR 100 mL/min (>60)
[2022-04-22] MEDS ORDERED: Sodium Chloride 0.9% 10 ML Syringe FLUSH PRN (16:56)
[2022-04-22] MEDS ORDERED: Magnesium Sulfate/Water 2 GM in Premix Bag 1 BAG IV ONE (16:56)
[2022-04-22] MEDS ORDERED: Potassium Chloride 10 MEQ in Premix Bag 1 BAG IV SCH (17:00)
[2022-04-22 18:44] LABS: CORONAVIRUS COVID-19 NAA NEGATIVE (NEGATIVE)
[2022-04-22] MEDS ORDERED: LORazepam 2 MG/ML SDV IV PRN (20:37)
[2022-04-22] MEDS ORDERED: Albuterol 0.083% 2.5 MG/3 ML Neb Soln NEB PRN (20:37)
[2022-04-22] MEDS ORDERED: Albuterol/Ipratropium 3.0-0.5 MG/3 ML Neb Soln NEB PRN (20:37)
[2022-04-22] MEDS ORDERED: Ondansetron 4 MG Tab.DIS PO PRN (20:37)
[2022-04-22] MEDS: Dextrose 5%-0.9% NaCl 1,000 ML IV SCH (20:40)
[2022-04-22] MEDS ORDERED: Pantoprazole 40 MG Vial IV SCH (21:00)
[2022-04-22] MEDS ORDERED: Potassium Chloride Riders 40 MEQ in Premix Bag 1 BAG IV ONE (21:00)
[2022-04-22] MEDS: Nicotine 14 MG/24 Hr Patch TRDERM SCH (21:14)
[2022-04-22] MEDS: Gabapentin 300 MG Cap PO SCH (21:14)
[2022-04-22] MEDS ORDERED: Iopamidol 612 MG/ML 100 ML Bottle IV ONE (21:16)
[2022-04-22] MEDS ORDERED: Sodium Chloride 0.9% 50 ML IV ONE (21:16)
[2022-04-22] MEDS ORDERED: Sodium Chloride 0.9% 10 ML Syringe FLUSH ONE (21:16)
[2022-04-22] MEDS: Potassium Chloride 10 MEQ in Premix Bag 1 BAG IV SCH ×2 (22:18→23:43)
[2022-04-23] MEDS: Potassium Chloride 10 MEQ in Premix Bag 1 BAG IV SCH ×7 (00:52→22:55)
[2022-04-23 05:08] LABS: ESTIMATED GFR 105 mL/min (>60)
[2022-04-23] MEDS: Folic Acid 1 MG Tab PO SCH (08:59)
[2022-04-23] MEDS: Aspirin 81 MG Tab.EC PO SCH ×2 (08:59→09:21)
[2022-04-23] MEDS: Potassium Phos in 0.9 % NaCl 15 MMOL in Premix Bag 1 BAG IV SCH ×4 (08:59→13:37)
[2022-04-23] MEDS: Pantoprazole 40 MG Tab.CR PO SCH ×3 (08:59→16:44)
[2022-04-23] MEDS: Nicotine 14 MG/24 Hr Patch TRDERM SCH (08:59)
[2022-04-23] MEDS: Thiamine 100 MG Tab PO SCH (09:00)
[2022-04-23] MEDS: Rivaroxaban 15 MG Tab PO SCH ×2 (14:12→22:53)
[2022-04-23] MEDS ORDERED: Magnesium Sulfate/Water 2 GM in Premix Bag 1 BAG IV ONE (15:00)
[2022-04-23] MEDS: Dextrose 5%-0.9% NaCl 1,000 ML IV SCH (16:44)
[2022-04-23] MEDS: Gabapentin 300 MG Cap PO SCH (22:53)
[2022-04-24] MEDS: Dextrose 5%-0.9% NaCl 1,000 ML IV SCH (05:13)
[2022-04-24 07:41] LABS: ESTIMATED GFR 105 mL/min (>60)
[2022-04-24] MEDS ORDERED: Calcium Carbonate/Vitamin D3 1500 MG-400 Units Tab PO SCH (09:00)
[2022-04-24] MEDS: Rivaroxaban 15 MG Tab PO SCH ×2 (10:34→20:44)
[2022-04-24] MEDS: Pantoprazole 40 MG Tab.CR PO SCH ×2 (10:34→17:29)
[2022-04-24] MEDS: Nicotine 14 MG/24 Hr Patch TRDERM SCH (10:34)
[2022-04-24] MEDS: Aspirin 81 MG Tab.EC PO SCH (10:34)
[2022-04-24] MEDS: Folic Acid 1 MG Tab PO SCH (10:38)
[2022-04-24] MEDS: Calcium Carbonate 500 MG Tab.Chew PO SCH ×2 (10:38→17:29)
[2022-04-24] MEDS: Thiamine 100 MG Tab PO SCH (11:42)
[2022-04-24] MEDS: Potassium Phos in 0.9 % NaCl 15 MMOL in Premix Bag 1 BAG IV SCH ×4 (12:07→15:44)
[2022-04-24] MEDS: Albumin Human 25 GM in Premix Bag 1 BAG IV SCH (18:47)
[2022-04-24] MEDS: Gabapentin 300 MG Cap PO SCH (20:44)
[2022-04-25] MEDS: Pantoprazole 40 MG Tab.CR PO SCH ×2 (08:41→17:10)
[2022-04-25] MEDS: Rivaroxaban 15 MG Tab PO SCH ×2 (08:41→20:36)
[2022-04-25] MEDS: Aspirin 81 MG Tab.EC PO SCH (08:41)
[2022-04-25] MEDS: Folic Acid 1 MG Tab PO SCH ×2 (08:42→08:53)
[2022-04-25] MEDS: Nicotine 14 MG/24 Hr Patch TRDERM SCH (08:42)
[2022-04-25] MEDS: Calcium Carbonate 500 MG Tab.Chew PO SCH ×2 (08:42→17:10)
[2022-04-25] MEDS: Thiamine 100 MG Tab PO SCH ×2 (08:42→08:53)
[2022-04-25] MEDS: Magnesium Sulfate/Water 2 GM in Premix Bag 1 BAG IV SCH ×4 (08:42→20:35)
[2022-04-25] MEDS: Albumin Human 25 GM in Premix Bag 1 BAG IV SCH (15:03)
[2022-04-25] MEDS: Gabapentin 300 MG Cap PO SCH (20:36)
[2022-04-26 04:54] LABS: ESTIMATED GFR 105 mL/min (>60)
[2022-04-26] MEDS: Pantoprazole 40 MG Tab.CR PO SCH ×2 (08:04→15:44)
[2022-04-26] MEDS: Calcium Carbonate 500 MG Tab.Chew PO SCH ×2 (08:04→15:44)
[2022-04-26] MEDS: Rivaroxaban 15 MG Tab PO SCH ×2 (08:12→20:39)
[2022-04-26] MEDS: Nicotine 14 MG/24 Hr Patch TRDERM SCH (08:12)
[2022-04-26] MEDS: Aspirin 81 MG Tab.EC PO SCH (08:12)
[2022-04-26] MEDS ORDERED: Potassium Chloride 20 MEQ Tab.ER PO ONE (09:10)
[2022-04-26] MEDS: Albumin Human 25 GM in Premix Bag 1 BAG IV SCH (15:44)
[2022-04-26] MEDS: Gabapentin 300 MG Cap PO SCH (20:39)
[2022-04-27] MEDS: Nicotine 14 MG/24 Hr Patch TRDERM SCH (08:04)
[2022-04-27] MEDS: Rivaroxaban 15 MG Tab PO SCH ×2 (08:04→21:13)
[2022-04-27] MEDS: Aspirin 81 MG Tab.EC PO SCH (08:04)
[2022-04-27] MEDS: Pantoprazole 40 MG Tab.CR PO SCH ×2 (08:04→15:43)
[2022-04-27] MEDS: Calcium Carbonate 500 MG Tab.Chew PO SCH ×2 (08:07→15:43)
[2022-04-27] MEDS: Gabapentin 300 MG Cap PO SCH (21:13)
[2022-04-28] MEDS: Calcium Carbonate 500 MG Tab.Chew PO SCH ×2 (07:44→16:43)
[2022-04-28] MEDS: Pantoprazole 40 MG Tab.CR PO SCH ×2 (07:44→16:43)
[2022-04-28] MEDS: Aspirin 81 MG Tab.EC PO SCH (08:16)
[2022-04-28] MEDS: Nicotine 14 MG/24 Hr Patch TRDERM SCH (08:16)
[2022-04-28] MEDS: Rivaroxaban 15 MG Tab PO SCH ×2 (08:16→20:46)
[2022-04-28] MEDS: Acetaminophen 325 MG Tab PO PRN (10:15)
[2022-04-28] MEDS: Gabapentin 300 MG Cap PO SCH (20:46)
[2022-04-29] MEDS: Calcium Carbonate 500 MG Tab.Chew PO SCH ×2 (07:59→15:58)
[2022-04-29] MEDS: Pantoprazole 40 MG Tab.CR PO SCH ×2 (07:59→15:57)
[2022-04-29] MEDS: Rivaroxaban 15 MG Tab PO SCH ×2 (08:38→20:00)
[2022-04-29] MEDS: Aspirin 81 MG Tab.EC PO SCH (08:38)
[2022-04-29] MEDS: Nicotine 14 MG/24 Hr Patch TRDERM SCH (08:39)
[2022-04-29] MEDS: Gabapentin 300 MG Cap PO SCH (20:00)
[2022-04-30] MEDS: Nicotine 14 MG/24 Hr Patch TRDERM SCH ×2 (08:03→08:07)
[2022-04-30] MEDS: Pantoprazole 40 MG Tab.CR PO SCH ×2 (08:03→16:57)
[2022-04-30] MEDS: Calcium Carbonate 500 MG Tab.Chew PO SCH ×2 (08:03→16:57)
[2022-04-30] MEDS: Aspirin 81 MG Tab.EC PO SCH (08:04)
[2022-04-30] MEDS: Rivaroxaban 15 MG Tab PO SCH ×2 (08:04→20:13)
[2022-04-30] MEDS: Gabapentin 300 MG Cap PO SCH (20:13)
[2022-04-30] MEDS: oxyCODONE 5 MG Tab PO PRN (23:33)
[2022-05-01] MEDS: Pantoprazole 40 MG Tab.CR PO SCH ×2 (07:51→16:26)
[2022-05-01] MEDS: Calcium Carbonate 500 MG Tab.Chew PO SCH ×2 (07:51→16:26)
[2022-05-01] MEDS: Rivaroxaban 15 MG Tab PO SCH ×2 (08:07→20:52)
[2022-05-01] MEDS: Aspirin 81 MG Tab.EC PO SCH (08:07)
[2022-05-01] MEDS: Nicotine 14 MG/24 Hr Patch TRDERM SCH (08:07)
[2022-05-01] MEDS: Gabapentin 300 MG Cap PO SCH (20:52)
[2022-05-01] MEDS: oxyCODONE 5 MG Tab PO PRN (20:56)
[2022-05-02] MEDS: Rivaroxaban 15 MG Tab PO SCH ×2 (08:13→20:36)
[2022-05-02] MEDS: Pantoprazole 40 MG Tab.CR PO SCH ×2 (08:13→16:35)
[2022-05-02] MEDS: Nicotine 14 MG/24 Hr Patch TRDERM SCH (08:13)
[2022-05-02] MEDS: Calcium Carbonate 500 MG Tab.Chew PO SCH ×2 (08:13→16:35)
[2022-05-02] MEDS: Aspirin 81 MG Tab.EC PO SCH (08:13)
[2022-05-02] MEDS: Gabapentin 300 MG Cap PO SCH (20:36)
[2022-05-03] MEDS: Pantoprazole 40 MG Tab.CR PO SCH ×2 (08:12→17:11)
[2022-05-03] MEDS: Rivaroxaban 15 MG Tab PO SCH ×2 (08:13→20:12)
[2022-05-03] MEDS: Nicotine 14 MG/24 Hr Patch TRDERM SCH (08:13)
[2022-05-03] MEDS: Calcium Carbonate 500 MG Tab.Chew PO SCH ×2 (08:13→17:11)
[2022-05-03] MEDS: Aspirin 81 MG Tab.EC PO SCH (08:13)
[2022-05-03] MEDS: Gabapentin 300 MG Cap PO SCH (20:12)
[2022-05-04] MEDS: Calcium Carbonate 500 MG Tab.Chew PO SCH ×2 (08:01→16:58)
[2022-05-04] MEDS: Rivaroxaban 15 MG Tab PO SCH ×2 (08:01→20:15)
[2022-05-04] MEDS: Aspirin 81 MG Tab.EC PO SCH (08:01)
[2022-05-04] MEDS: Pantoprazole 40 MG Tab.CR PO SCH ×2 (08:01→16:58)
[2022-05-04] MEDS: Nicotine 14 MG/24 Hr Patch TRDERM SCH (08:02)
[2022-05-04] MEDS: Gabapentin 300 MG Cap PO SCH (20:14)
[2022-05-05] MEDS: Pantoprazole 40 MG Tab.CR PO SCH ×2 (08:08→17:31)
[2022-05-05] MEDS: Nicotine 14 MG/24 Hr Patch TRDERM SCH (08:09)
[2022-05-05] MEDS: Aspirin 81 MG Tab.EC PO SCH (08:09)
[2022-05-05] MEDS: Rivaroxaban 15 MG Tab PO SCH ×2 (08:09→20:14)
[2022-05-05] MEDS: Calcium Carbonate 500 MG Tab.Chew PO SCH ×2 (08:09→17:31)
[2022-05-05] MEDS: Acetaminophen 325 MG Tab PO PRN (17:32)
[2022-05-05] MEDS: oxyCODONE 5 MG Tab PO PRN (19:38)
[2022-05-05] MEDS: Gabapentin 300 MG Cap PO SCH (20:14)
[2022-05-06] MEDS: Calcium Carbonate 500 MG Tab.Chew PO SCH (07:41)
[2022-05-06] MEDS: Pantoprazole 40 MG Tab.CR PO SCH (07:41)
[2022-05-06] MEDS: Nicotine 14 MG/24 Hr Patch TRDERM SCH (08:28)
[2022-05-06] MEDS: Rivaroxaban 15 MG Tab PO SCH (08:29)
[2022-05-06] MEDS: Aspirin 81 MG Tab.EC PO SCH (08:29)
[2022-05-06] MEDS: Acetaminophen 325 MG Tab PO PRN (08:31)
[2022-05-06 10:54] VITALS: BP 93/61; PULSE 89
== END 2022-05-06 12:25 | disposition home or self-care (01) | DRG 896 ==
LOC: JP.ED 14:33 → JP.MS 19:58
PROVIDERS: ADMIT Internal Medicine; ATTEND Hospitalist
DX: F10.288 Alcohol dependence with other alcohol-induced disorder (principal); E43 Unspecified severe protein-calorie malnutrition; N39.0 Urinary tract infection, site not specified; Z68.1 Body mass index [BMI] 19.9 or less, adult; G72.1 Alcoholic myopathy; I82.411 Acute embolism and thrombosis of right femoral vein; E87.6 Hypokalemia; Z20.822 Contact with and (suspected) exposure to COVID-19; E78.00 Pure hypercholesterolemia, unspecified; I10 Essential (primary) hypertension; F17.210 Nicotine dependence, cigarettes, uncomplicated; K21.9 Gastro-esophageal reflux disease without esophagitis; E83.42 Hypomagnesemia; E83.51 Hypocalcemia; E86.1 Hypovolemia; D53.9 Nutritional anemia, unspecified; F32.9 Major depressive disorder, single episode, unspecified; K29.70 Gastritis, unspecified, without bleeding; G25.81 Restless legs syndrome; Z79.01 Long term (current) use of anticoagulants; Z79.899 Other long term (current) drug therapy; Z88.0 Allergy status to penicillin; Z88.2 Allergy status to sulfonamides; Z95.5 Presence of coronary angioplasty implant and graft; Z90.710 Acquired absence of both cervix and uterus; Z98.890 Other specified postprocedural states; Z79.82 Long term (current) use of aspirin
CPT/HCPCS: 0241U; 36415; 36430; 74177; 80048; 80053; 80307; 81001; 83690; 83735; 84100; 84132; 84443; 84484; 85018; 85025; 85027; 86850; 86900; 86901; 86920; 86922; 93005; 93010; 93970; 93970-26; 96365; 96366; 96368; 97110-GO; 97110-GP; 97116-GP; 97162-GP; 97165-GO; 97530-GP; 97535-GO; 99222; 99231; 99232; 99238; 99284; 99285-25; A9270-GY; C9113; J3475; J3480; J3490; P9016; P9047; Q9967; U0002

== ENCOUNTER 2023-04-04 16:12 | Inpatient (IN) | payer MEDICARE, MEDICAID ==
[2023-04-04] MEDS ORDERED: Albuterol 0.083% 2.5 MG/3 ML Neb Soln NEB PRN (17:09)
[2023-04-04] MEDS ORDERED: Ondansetron 4 MG Tab.DIS PO PRN (17:09)
[2023-04-04] MEDS ORDERED: Ondansetron 4 MG/2 ML SDV IV PRN (17:09)
[2023-04-04] MEDS: Pantoprazole 40 MG Tab.CR PO SCH (17:44)
[2023-04-04] MEDS: Sodium Chloride 0.9% 1,000 ML IV SCH (17:59)
[2023-04-04] MEDS ORDERED: Sodium Chloride 0.9% 10 ML Syringe FLUSH PRN (18:12)
[2023-04-04 18:26] LABS: CORONAVIRUS COVID-19 NAA NEGATIVE (NEGATIVE); INFLUENZA A NAA NEGATIVE (NEGATIVE); INFLUENZA B NAA NEGATIVE (NEGATIVE); RESPIRATORY SYNCYTIAL VIR NAA NEGATIVE (NEGATIVE)
[2023-04-04] MEDS: Sodium Chloride 0.9% 100 ML IV SCH (18:58)
[2023-04-04] MEDS: Iopamidol 612 MG/ML 100 ML Bottle IV SCH (18:58)
[2023-04-04] MEDS: Sodium Chloride 0.9% 10 ML Syringe FLUSH PRN (18:59)
[2023-04-04] MEDS: Acetaminophen 325 MG Tab PO PRN (20:08)
[2023-04-04] MEDS: Gabapentin 300 MG Cap PO SCH (20:09)
[2023-04-04] MEDS: Melatonin 3 MG Tab PO PRN (22:23)
[2023-04-05 01:21] LABS: APPEARANCE,URINE SLIGHTLY CLOUDY (CLEAR); BILIRUBIN,URINE NEGATIVE (NEGATIVE); COLOR,URINE YELLOW (YELLOW); GLUCOSE,URINE NEGATIVE (NEGATIVE); KETONES,URINE NEGATIVE (NEGATIVE); LEUKOCYTE ESTERASE,URINE NEGATIVE (NEGATIVE); NITRITE,URINE NEGATIVE (NEGATIVE); OCCULT BLOOD,URINE NEGATIVE (NEGATIVE); PROTEIN,URINE NEGATIVE (NEGATIVE); UROBILINOGEN,URINE 0.2 EU/dL (0.2-1.0)
[2023-04-05 01:26] LABS: RBC,URINE 0-5 (0-5); WBC,URINE 0-5 (0-5)
[2023-04-05 01:27] LABS: AMORPHOUS SEDIMENT,URINE NOT SEEN; BACTERIA,URINE MANY; EPITHELIAL CELLS,URINE RARE; MUCUS,URINE FEW
[2023-04-05] MEDS: cefTRIAXone 1 GM in Sodium Chloride 0.9% 50 ML IV SCH (01:54)
[2023-04-05] MEDS ORDERED: Potassium Chloride 20 MEQ Tab.ER ONE ×2 (07:46)
[2023-04-05] MEDS: Potassium Chloride 20 MEQ Tab.ER PO ONE (08:00)
[2023-04-05] MEDS: Folic Acid 1 MG Tab PO SCH (08:30)
[2023-04-05] MEDS: Thiamine 100 MG Tab PO SCH (08:30)
[2023-04-05 10:53] LABS: A/G RATIO 0.7 (1.2-2.2); ALANINE AMINOTRANSFERASE,ALT 27 U/L (12-78); ALKALINE PHOSPHATASE 102 U/L (46-116); ASPARTATE AMNIOTRANSFERASE,AST 47 U/L (15-37); BILIRUBIN TOTAL 0.4 mg/dL (0.2-1.0); BLOOD UREA NITROGEN,BUN 4 mg/dL (7-18); CALCIUM 7.5 mg/dL (8.5-10.1); CARBON DIOXIDE,CO2 23 mmol/L (21-32); CHLORIDE,CL 104 mmol/L (100-108); CREATININE 0.5 mg/dL (0.6-1.0); EST CRCL DRUG DOSING (CG) 64.26 mL/min; ESTIMATED GFR 104 mL/min (>60); GLUCOSE RANDOM 85 mg/dL (74-106); MAGNESIUM 1.5 mg/dL (1.8-2.4); PROTEIN TOTAL,TP 4.9 g/dL (6.4-8.2); SODIUM,NA 135 mmol/L (140-148)
[2023-04-05 10:56] LABS: HEMATOCRIT 26.5 % (34.3-46.0); MEAN CORPUSCULAR HEMOGLOBIN 35.4 pg (31.6-35.5); MEAN CORPUSCULAR VOLUME 104.3 fL (81.4-99.0); RED BLOOD CELL COUNT 2.54 M/uL (3.77-5.24); WHITE BLOOD CELL COUNT,WBC 3.6 K/uL (3.2-11.0)
[2023-04-05] MEDS: Potassium Chloride 10 MEQ in Premix Bag 1 BAG IV SCH (10:56)
[2023-04-05] MEDS: Magnesium Sulfate/Water 2 GM in Premix Bag 1 BAG IV SCH (10:56)
[2023-04-05 12:13] LABS: PROTHROMBIN TIME 10.3 sec (9.2-10.6)
[2023-04-05 12:14] LABS: ANION GAP 10.9 mmol/L (5.0-14.0); C-REACTIVE PROTEIN < 0.50 mg/dL (<0.50); POTASSIUM,K 2.9 mmol/L (3.6-5.2)
[2023-04-05] MEDS ORDERED: Dimethicone 20%/Zinc Oxide 25% 56 GM Spray Bottle TOP PRN (19:27)
[2023-04-05] MEDS: Loperamide 2 MG Cap PO ONE (22:25)
[2023-04-06 05:48] LABS: CALCIUM 7.5 mg/dL (8.5-10.1); CREATININE 0.5 mg/dL (0.6-1.0); EST CRCL DRUG DOSING (CG) 66.67 mL/min; POTASSIUM,K 3.7 mmol/L (3.6-5.2)
[2023-04-06 05:49] LABS: ANION GAP 10.7 mmol/L (5.0-14.0)
[2023-04-06] MEDS: Gabapentin 300 MG Cap PO SCH ×2 (14:24→20:21)
[2023-04-06] MEDS: Cephalexin 250 MG Cap PO SCH (20:21)
[2023-04-07] MEDS: Loperamide 2 MG Cap PO PRN (09:40)
[2023-04-08 05:41] LABS: HEMATOCRIT 25.6 % (34.3-46.0); HEMOGLOBIN 8.5 g/dL (11.2-15.5); MEAN CORPUSCULAR HGB CONC 33.2 g/dL (31.6-35.5); MEAN CORPUSCULAR VOLUME 108.5 fL (81.4-99.0); RED BLOOD CELL COUNT 2.36 M/uL (3.77-5.24); WHITE BLOOD CELL COUNT,WBC 3.4 K/uL (3.2-11.0)
[2023-04-08 05:58] LABS: CALCIUM 8.3 mg/dL (8.5-10.1); CREATININE 0.6 mg/dL (0.6-1.0); EST CRCL DRUG DOSING (CG) 54.22 mL/min; POTASSIUM,K 3.9 mmol/L (3.6-5.2)
[2023-04-08 05:59] LABS: ANION GAP 11.9 mmol/L (5.0-14.0)
[2023-04-08] MEDS: Cholecalciferol (Vitamin D3) 50,000 Unit Cap PO SCH (08:55)
[2023-04-08] MEDS ORDERED: Bupivacaine 0.25% 10 ML SDV ONE (12:30)
[2023-04-08] MEDS ORDERED: methylPREDNISolone Acetate 80 MG/ML SDV ONE (12:30)
[2023-04-11 11:18] VITALS: BP 100/64; PULSE 95
== END 2023-04-11 14:45 | disposition home or self-care (01) | DRG 74 ==
LOC: JP.MS 16:12
PROVIDERS: ADMIT Internal Medicine; ATTEND Hospitalist
DX: G62.9 Polyneuropathy, unspecified (principal); F10.288 Alcohol dependence with other alcohol-induced disorder; S32.050S Wedge compression fracture of fifth lumbar vertebra, sequela; G89.29 Other chronic pain; M54.50 Low back pain, unspecified; F17.210 Nicotine dependence, cigarettes, uncomplicated; L89.109 Pressure ulcer of unspecified part of back, unspecified stage; E78.00 Pure hypercholesterolemia, unspecified; E87.6 Hypokalemia; K21.9 Gastro-esophageal reflux disease without esophagitis; K29.70 Gastritis, unspecified, without bleeding; I10 Essential (primary) hypertension; F32.A Depression, unspecified; Z79.01 Long term (current) use of anticoagulants; Z79.899 Other long term (current) drug therapy; Z88.0 Allergy status to penicillin; Z88.8 Allergy status to other drugs, medicaments and biological substances; Z88.2 Allergy status to sulfonamides; Z98.890 Other specified postprocedural states; Z95.5 Presence of coronary angioplasty implant and graft; Z90.710 Acquired absence of both cervix and uterus
CPT/HCPCS: 0241U; 36415; 74177; 80048; 80053; 81001; 82306; 82607; 83735; 84100; 84132; 85027; 85610; 86140; 87086; 87088; 87186; 97110; 97161; 97165; 97530; 99222; 99232; 99238; A9270-GY; J0696; J1040; J3475; J3480; J3490; J7030; Q9967

== ENCOUNTER 2023-09-29 08:15 | Inpatient (IN) | payer MEDICARE, MEDICAID ==
[2023-09-29] MEDS: Sodium Chloride 0.9% 1,000 ML IV ONE (09:02)
[2023-09-29 09:13] LABS: BASE EXCESS VENOUS -1.2 mm/L; BICARBONATE,VENOUS 22.8 mmol/L; CARBOXYHEMOGLOBIN 3.5 % (0.0-1.6); METHEMOGLOBIN 0.8 %; O2 SATURATION VENOUS 44.1; OXYHEMOGLOBIN 42.2 %; PCO2 VENOUS 37.8 mm/Hg; PH,VENOUS 7.397 (7.350-7.450); TOTAL HEMOGLOBIN 11.7 g/dL (12.0-16.0)
[2023-09-29 09:20] LABS: HEMATOCRIT 31.4 % (34.3-46.0); HEMOGLOBIN 11.2 g/dL (11.2-15.5); INR 1.1; MEAN CORPUSCULAR HEMOGLOBIN 34.1 pg (31.6-35.5); MEAN CORPUSCULAR HGB CONC 35.7 g/dL (31.6-35.5); MEAN CORPUSCULAR VOLUME 95.7 fL (81.4-99.0); PLATELET COUNT,PLT 315 K/uL (130-375); RED BLOOD CELL COUNT 3.28 M/uL (3.77-5.24); WHITE BLOOD CELL COUNT,WBC 12.4 K/uL (3.2-11.0)
[2023-09-29 09:21] LABS: PO2 VENOUS 29.6 mm/Hg
[2023-09-29 09:26] LABS: APPEARANCE,URINE CLOUDY (CLEAR); BILIRUBIN,URINE MODERATE (NEGATIVE); GLUCOSE,URINE NEGATIVE (NEGATIVE); KETONES,URINE 15 mg/dL (NEGATIVE); LEUKOCYTE ESTERASE,URINE NEGATIVE (NEGATIVE); NITRITE,URINE NEGATIVE (NEGATIVE); OCCULT BLOOD,URINE NEGATIVE (NEGATIVE); PROTEIN,URINE 100 mg/dL (NEGATIVE); UROBILINOGEN,URINE >=8.0 EU/dL (0.2-1.0)
[2023-09-29 09:35] LABS: BAND ABSOLUTE MAN 0.25 K/uL; BAND PERCENT MAN 2 % (5-11); BASOPHILS ABSOLUTE MAN 0.12 K/uL (0.00-0.10); BASOPHILS PERCENT MAN 1 % (0-1); LYMPHOCYTES ABSOLUTE MAN 0.25 K/uL (0.8-3.3); LYMPHOCYTES PERCENT MAN 2 % (24-44); MONOCYTES ABSOLUTE MAN 0.87 K/uL (0.20-0.90); MONOCYTES PERCENT MAN 7 % (2-6); NEUTROPHILS ABSOLUTE MAN 10.91 K/uL (1.0-7.6); SEG NEUTROPHILS PERCENT MAN 88 % (36-66)
[2023-09-29 09:39] LABS: AMORPHOUS SEDIMENT,URINE MODERATE; BACTERIA,URINE MODERATE; COLOR,URINE OTHER (YELLOW); EPITHELIAL CELLS,URINE FEW; MUCUS,URINE NOT SEEN; RBC,URINE 0-5 (0-5); WBC,URINE 0-5 (0-5)
[2023-09-29 09:41] LABS: AMPHETAMINES SCREEN, URINE NEGATIVE (NEGATIVE); BARBITURATE SCREEN,URINE NEGATIVE (NEGATIVE); BENZODIAZEPINES SCREEN,URINE NEGATIVE (NEGATIVE); METHADONE SCREEN, URINE NEGATIVE (NEGATIVE); METHAMPHETAMINES SCREEN, URINE NEGATIVE (NEGATIVE); OXYCODONE SCREEN,URINE NEGATIVE (NEGATIVE); PROPOXYPHENE SCREEN,URINE NEGATIVE (NEGATIVE); THC SCREEN,URINE 50 NG/ML NEGATIVE (NEGATIVE)
[2023-09-29 09:45] LABS: A/G RATIO 0.4 (1.2-2.2); ALANINE AMINOTRANSFERASE,ALT 13 U/L (12-78); ALBUMIN 1.8 g/dL (3.4-5.0); ALKALINE PHOSPHATASE 140 U/L (46-116); ASPARTATE AMNIOTRANSFERASE,AST 21 U/L (15-37); BILIRUBIN TOTAL 1.3 mg/dL (0.2-1.0); BLOOD UREA NITROGEN,BUN 7 mg/dL (7-18); CALCIUM 8.3 mg/dL (8.5-10.1); CARBON DIOXIDE,CO2 23 mmol/L (21-32); CHLORIDE,CL 95 mmol/L (100-108); CREATININE 0.5 mg/dL (0.6-1.0); EST CRCL DRUG DOSING (CG) 70.68 mL/min; ESTIMATED GFR 104 mL/min (>60); GLUCOSE RANDOM 119 mg/dL (74-106); POTASSIUM,K 3.1 mmol/L (3.6-5.2); SODIUM,NA 130 mmol/L (140-148); TROPONIN I HIGH SENSITIVITY 4.4 pg/mL (<=60.3)
[2023-09-29 09:46] LABS: ANION GAP 15.1 mmol/L (5.0-14.0)
[2023-09-29] MEDS: NS with KCl 40mEq 1,000 ML IV SCH (09:55)
[2023-09-29 09:59] LABS: CORONAVIRUS COVID-19 NAA NEGATIVE (NEGATIVE); INFLUENZA A NAA NEGATIVE (NEGATIVE); INFLUENZA B NAA NEGATIVE (NEGATIVE); RESPIRATORY SYNCYTIAL VIR NAA NEGATIVE (NEGATIVE)
[2023-09-29] MEDS: Levofloxacin/Dextrose 5%-Water 500 MG in Premix Bag 1 BAG IV ONE (10:45)
[2023-09-29] MEDS: Sodium Chloride 0.9% 10 ML Syringe FLUSH ONE (12:10)
[2023-09-29] MEDS: Iopamidol 612 MG/ML 100 ML Bottle IV SCH (13:22)
[2023-09-29] MEDS: Sodium Chloride 0.9% 80 ML IV SCH (13:22)
[2023-09-29] MEDS: Apixaban 5 MG Tab PO SCH (13:25)
[2023-09-29] MEDS ORDERED: Sodium Chloride 0.9% 10 ML Syringe FLUSH PRN (13:41)
[2023-09-29] MEDS ORDERED: Polyethylene Glycol 3350 Powder 17 GM Packet PO PRN (13:41)
[2023-09-29] MEDS: Sodium Chloride 0.9% 1,000 ML IV SCH (14:19)
[2023-09-29] MEDS: Nicotine 7 MG/24 Hr Patch TRDERM SCH (14:21)
[2023-09-29] MEDS: Ondansetron 4 MG/2 ML SDV IV PRN (15:52)
[2023-09-29] MEDS: Acetaminophen 325 MG Tab PO PRN (15:52)
[2023-09-29] MEDS: Pantoprazole 40 MG Tab.CR PO ONE (15:54)
[2023-09-29] MEDS: FLUoxetine 10 MG Cap PO SCH (15:54)
[2023-09-29] MEDS: Gabapentin 300 MG Cap PO ONE (15:54)
[2023-09-29] MEDS: Potassium Chloride 20 MEQ Tab.ER PO ONE ×2 (15:54→17:24)
[2023-09-29] MEDS: Gabapentin 300 MG Cap PO SCH (20:44)
[2023-09-30 05:21] LABS: HEMATOCRIT 26.4 % (34.3-46.0); HEMOGLOBIN 9.3 g/dL (11.2-15.5); MEAN CORPUSCULAR HEMOGLOBIN 33.8 pg (31.6-35.5); MEAN CORPUSCULAR HGB CONC 35.2 g/dL (31.6-35.5); RED BLOOD CELL COUNT 2.75 M/uL (3.77-5.24); WHITE BLOOD CELL COUNT,WBC 14.3 K/uL (3.2-11.0)
[2023-09-30 05:56] LABS: C-REACTIVE PROTEIN 18.59 mg/dL (<0.50); CALCIUM 7.7 mg/dL (8.5-10.1); CREATININE 0.5 mg/dL (0.6-1.0); EST CRCL DRUG DOSING (CG) 57.73 mL/min; MAGNESIUM 1.4 mg/dL (1.8-2.4); POTASSIUM,K 4.5 mmol/L (3.6-5.2)
[2023-09-30 06:09] LABS: ANION GAP 17.5 mmol/L (5.0-14.0)
[2023-09-30] MEDS: Pantoprazole 40 MG Tab.CR PO SCH (06:54)
[2023-09-30] MEDS: Magnesium Oxide 400 MG Tab PO SCH (10:05)
[2023-09-30] MEDS: Magnesium Sulfate/Water 2 GM in Premix Bag 1 BAG IV SCH (10:05)
[2023-09-30] MEDS: Sodium Chloride 0.9% 1,000 ML IV SCH (18:02)
[2023-09-30] MEDS: Dimethicone 20%/Zinc Oxide 25% 56 GM Spray Bottle TOP PRN (18:03)
[2023-09-30 19:24] LABS: HEPATITIS A ANTIBODY, IGM Negative (Negative); HEPATITIS B CORE ANTIBODY, IGM Negative (Negative); HEPATITIS B SURFACE ANTIGEN Negative (Negative); HEPATITIS C AB CIA INTERP Negative (Negative); HEPATITIS C ANTIBODY CIA INDEX 0.05 IV
[2023-10-01 05:23] LABS: HEMATOCRIT 23.7 % (34.3-46.0); HEMOGLOBIN 8.4 g/dL (11.2-15.5); MEAN CORPUSCULAR HEMOGLOBIN 33.9 pg (31.6-35.5); MEAN CORPUSCULAR HGB CONC 35.4 g/dL (31.6-35.5); MEAN CORPUSCULAR VOLUME 95.6 fL (81.4-99.0); RED BLOOD CELL COUNT 2.48 M/uL (3.77-5.24); WHITE BLOOD CELL COUNT,WBC 9.4 K/uL (3.2-11.0)
[2023-10-01 05:37] LABS: CALCIUM 7.5 mg/dL (8.5-10.1); CREATININE 0.5 mg/dL (0.6-1.0); EST CRCL DRUG DOSING (CG) 58.96 mL/min; POTASSIUM,K 3.5 mmol/L (3.6-5.2)
[2023-10-01 05:41] LABS: ANION GAP 11.5 mmol/L (5.0-14.0)
[2023-10-01] MEDS: Potassium Chloride 20 MEQ Tab.ER PO ONE (08:19)
[2023-10-02 05:42] LABS: CALCIUM 7.8 mg/dL (8.5-10.1); CREATININE 0.5 mg/dL (0.6-1.0); EST CRCL DRUG DOSING (CG) 64.28 mL/min; POTASSIUM,K 3.8 mmol/L (3.6-5.2)
[2023-10-02 05:58] LABS: ANION GAP 10.8 mmol/L (5.0-14.0)
[2023-10-02] MEDS: Bisacodyl 10 MG Supp RECTAL ONE (11:51)
[2023-10-02] MEDS: Polyethylene Glycol 3350 Powder 17 GM Packet PO ONE (11:51)
[2023-10-03 12:17] VITALS: BP 85/52; PULSE 96
== END 2023-10-03 13:00 | DRG 175 ==
LOC: JP.ED 08:15 → JP.MS 12:38
PROVIDERS: ADMIT Hospitalist; ATTEND Hospitalist
DX: I26.99 Other pulmonary embolism without acute cor pulmonale (principal); E43 Unspecified severe protein-calorie malnutrition; R64 Cachexia; F10.288 Alcohol dependence with other alcohol-induced disorder; Z68.1 Body mass index [BMI] 19.9 or less, adult; R53.1 Weakness; K21.9 Gastro-esophageal reflux disease without esophagitis; I10 Essential (primary) hypertension; F17.210 Nicotine dependence, cigarettes, uncomplicated; Z79.899 Other long term (current) drug therapy; R21 Rash and other nonspecific skin eruption; F32.9 Major depressive disorder, single episode, unspecified; E87.6 Hypokalemia; Z88.2 Allergy status to sulfonamides; Z88.0 Allergy status to penicillin; Z88.8 Allergy status to other drugs, medicaments and biological substances; Z79.01 Long term (current) use of anticoagulants; Z95.5 Presence of coronary angioplasty implant and graft; Z90.710 Acquired absence of both cervix and uterus
CPT/HCPCS: 0241U; 36415; 71045; 71260; 73610; 73630; 74177; 76705; 80048; 80053; 80074; 80305; 80307; 81001; 82550; 82803; 83605; 83735; 84145; 84443; 84484; 85018; 85025; 85027; 85379; 85610; 86140; 87040; 87086; 93005; 93010; 96361; 96365; 96366; 96368; 97110; 97161; 99222; 99232; 99238; 99285; A9270-GY; J1956; J2405; J3475; J3480; J3490; J7030; Q9967

== ENCOUNTER 2024-04-13 00:39 | Emergency (ER) | payer MEDICARE, MEDICAID ==
[2024-04-13 01:27] LABS: BASOPHILS ABSOLUTE AUTO 0.04 K/uL (0.00-0.10); BASOPHILS PERCENT AUTO 0.6 % (0.1-1.3); EOSINOPHILS ABSOLUTE AUTO 0.04 K/uL (0.00-0.40); EOSINOPHILS PERCENT AUTO 0.6 % (0.0-5.4); HEMATOCRIT 36.5 % (34.3-46.0); HEMOGLOBIN 12.2 g/dL (11.2-15.5); IMMATURE GRAN PERCENT AUTO 0.3 % (0.0-0.7); LYMPHOCYTES ABSOLUTE AUTO 2.78 K/uL (0.8-3.3); LYMPHOCYTES PERCENT AUTO 42.4 % (11.4-47.7); MEAN CORPUSCULAR HEMOGLOBIN 33.7 pg (31.6-35.5); MEAN CORPUSCULAR HGB CONC 33.4 g/dL (31.6-35.5); MEAN CORPUSCULAR VOLUME 100.8 fL (81.4-99.0); MONOCYTES ABSOLUTE AUTO 0.32 K/uL (0.20-0.90); MONOCYTES PERCENT AUTO 4.9 % (3.3-12.6); NEUTROPHILS ABSOLUTE AUTO 3.35 K/uL (1.0-7.6); NEUTROPHILS PERCENT AUTO 51.2 % (40.0-78.1); PLATELET COUNT,PLT 351 K/uL (130-375); RED BLOOD CELL COUNT 3.62 M/uL (3.77-5.24); WHITE BLOOD CELL COUNT,WBC 6.6 K/uL (3.2-11.0)
[2024-04-13 01:28] LABS: IMMATURE GRAN ABSOLUTE AUTO 0.02 K/uL (0.00-0.23)
[2024-04-13 01:49] LABS: A/G RATIO 0.6 (1.2-2.2); ALANINE AMINOTRANSFERASE,ALT 20 U/L (12-78); ALBUMIN 2.3 g/dL (3.4-5.0); ALKALINE PHOSPHATASE 95 U/L (46-116); ANION GAP 13.2 mmol/L (5.0-14.0); ASPARTATE AMNIOTRANSFERASE,AST 34 U/L (15-37); BILIRUBIN TOTAL 0.2 mg/dL (0.2-1.0); BLOOD UREA NITROGEN,BUN 7 mg/dL (7-18); CALCIUM 8.3 mg/dL (8.5-10.1); CARBON DIOXIDE,CO2 24 mmol/L (21-32); CHLORIDE,CL 101 mmol/L (100-108); CREATININE 0.7 mg/dL (0.6-1.0); EST CRCL DRUG DOSING (CG) 55.48 mL/min; ESTIMATED GFR 95 mL/min (>60); GLUCOSE RANDOM 87 mg/dL (74-106); POTASSIUM,K 4.2 mmol/L (3.6-5.2); PROTEIN TOTAL,TP 6.5 g/dL (6.4-8.2); SODIUM,NA 134 mmol/L (140-148)
[2024-04-13] MEDS: Bacitracin Oint 1 GM U/D Packet TOP ONE (02:01)
[2024-04-13] MEDS: Magnesium Oxide 400 MG Tab PO ONE (02:40)
[2024-04-13] MEDS: Acetaminophen 500 MG Tab PO ONE (02:57)
[2024-04-13 08:44] VITALS: BP 137/91; PULSE 86
== END 2024-04-13 08:15 | disposition home or self-care (01) ==
LOC: JP.ED 00:39
DX: S01.81XA Laceration without foreign body of other part of head, initial encounter (principal); S41.112A Laceration without foreign body of left upper arm, initial encounter; I10 Essential (primary) hypertension; F17.210 Nicotine dependence, cigarettes, uncomplicated; K21.9 Gastro-esophageal reflux disease without esophagitis; Z95.5 Presence of coronary angioplasty implant and graft; Z90.710 Acquired absence of both cervix and uterus; Z79.899 Other long term (current) drug therapy; Z88.0 Allergy status to penicillin; Z88.2 Allergy status to sulfonamides; Z88.8 Allergy status to other drugs, medicaments and biological substances; Z79.01 Long term (current) use of anticoagulants; W18.30XA Fall on same level, unspecified, initial encounter
CPT/HCPCS: 36415; 70450; 72110; 80053; 80307; 83735; 85025; 99284; A9270-GY